=== PATIENT | female | born 1935 | race Caucasian/White ===

== ENCOUNTER 2016-05-10 00:11 | Inpatient (IN) | payer MEDICARE ==
[~2016-05-10] VITALS: Ht 162.6 cm; Wt 67.3 kg
[2016-05-10] VITALS (18 sets, daily range): BP systolic 119–181; BP diastolic 60–97; PULSE 66–91; RESP 9–22; O2SAT 92–99
[~2016-05-10 00:11] MED LIST: OMEP20TA86 PO
--- NOTE | 2016-05-10 00:25 | ED.REPORT ---
HPI-Hip/Pelvis Prob/Inj Date of Service May 10, 2016 ED Provider: Ozzy Patel MD Pt is a 80 y.o. female with a hx of HTN who presents to the ED via EMS c/o left hip injury onset prior to arrival. Pt states that she was attempting to get ready for bed when she experienced a ground level fall, landing on her left hip. She was unable to get up and experiences pain only with movement. She denies head injury and LOC. Pt denies taking blood thinners currently. Nursing Notes Stated Complaint: LEFT HIP PAIN/ FALL Chief Complaint: Extremity Trauma Nursing Notes Reviewed: Yes Allergies: Coded Allergies: codeine (Verified Allergy, Severe, NAUSEA, 05/10/16) iodine (Verified Allergy, Severe, 05/10/16) Scheduled Amlodipine (Amlodipine) 2.5 Mg Tablet 2.5 MG PO DAILY Citalopram (Citalopram) 20 Mg Tablet 20 MG PO DAILY Scheduled PRN Tramadol (Tramadol) 50 Mg Tablet 50 MG PO q6 PRN PRN For Pain General Time Seen by Provider: 00:25 Chief Complaint Hip injury left Hx Obtained From: Patient Arrived By: Ambulance Onset Occurred: Just prior to arrival Context of Onset: Home injury Symptom Duration: Since onset Caused by: Fall on ground Quality: Painful Severity: Current: Pain level 10 out of 10 Past Medical History Past Medical History Arthritis Reports: Hypertension Past Surgical History Right elbow Reports: Cataract surgery, Tonsillectomy Reports: Knee replacement Smoking History Former Smoker, Never Smoker Ambulatory Status Independent Review of Systems Musculoskeletal: Reports: Joint pain (Left hip) Neurologic: Denies: Change LOC, Headache Complete sys rev & neg: except as marked. Physical Exam Initial Vital Signs Vital Signs (First) Date Time Temp Pulse Resp B/P Pulse Ox O2 Delivery O2 Flow Rate FiO2 05/10/16 00:15 36.0 81 20 177/96 99 Room Air Initial VS: Reviewed Upper Extremities: Vascular intact, Neuro intact Skin: Warm, Dry, No cyanosis Neurologic: Alert, Oriented, Nonfocal Psychiatric: Mood/affect normal, Behavior normal, Normal thought content Lower Extremity / Pelvis / MS: Neurologic intact, Vascular intact Lower Ext Brief Normals: Hip R exam normal, Knee R exam normal, Knee L exam normal Left Hip: Positive: Leg externally rotated, Leg shortened, Tenderness present..., Unable to bear weight General/Constitutional: Awake, Alert, No acute distress, Well appearing, Well developed, Well hydrated, Well nourished, Not toxic appearing Head / Eyes: Atraumatic, Normocephalic, PERRL Respiratory / Chest: Atraumatic, Breath sounds NL, Breath sounds = bilat, No respiratory distress, No rales, No rhonchi, No wheezing Cardiovascular: Heart rate NL, Regular rhythm, Heart sounds NL, Peripheral circulation NL Abdomen: Atraumatic, Soft, Non-tender, No distention Interpretation & Diagnostics Lab Results Interpretation Result Diagram: 05/10/16 0117 05/10/16 0117 Test 05/10/16 01:17 White Blood Count 5.6th/mm3 (3.8-10.1) Red Blood Count 4.30mil/mm3 (3.90-5.20) Hemoglobin 13.3g/dL (12.0-15.6) Hematocrit 40.5% (35.0-46.0) Mean Corpuscular Volume 94.2fL (81-100) Mean Corpuscular Hemoglobin 30.9pg (27.0-35.0) Mean Corpuscular Hemoglobin Concent 32.8% (32.0-37.0) Red Cell Distribution Width 12.3% (12.3-15.4) Platelet Count 239bil/L (150-400) Neutrophils (%) (Auto) 62.3% (40-74) Lymphocytes (%) (Auto) 23.7% (14-46) Monocytes (%) (Auto) 8.9% (4-12) Eosinophils (%) (Auto) 3.7% (0-5) Basophils (%) (Auto) 0.9% (0-3) Prothrombin Time 10.6sec (8.1-12.5) Prothromb Time International Ratio 0.99ratio Activated Partial Thromboplast Time 25.9sec (22.8-33.0) Sodium Level 139mEq/L (134-144) Potassium Level 4.4mEq/L (3.5-5.2) Chloride Level 101mEq/L (97-108) Carbon Dioxide Level 23mmol/L (18-29) Blood Urea Nitrogen 29mg/dL (8-27) Creatinine 0.72mg/dL (0.57-1.00) Estimat Glomerular Filtration Rate 112mL/min (>59) Glucose Level 112mg/dL (60-99) Calcium Level 8.7mg/dL (8.5-10.1) Magnesium Level 1.9mg/dL (1.6-2.6) Total Bilirubin 0.2mg/dL (0.0-1.2) Aspartate Amino Transf (AST/SGOT) 25U/L (0-50) Alanine Aminotransferase (ALT/SGPT) 19U/L (0-32) Alkaline Phosphatase 86U/L (25-165) Troponin T 0.010ug/L (0.0-0.011) Total Protein 6.5g/dL (6.4-8.4) Albumin 3.9g/dL (3.4-5.0) Lipase 29U/L (13-60) Alcohols < 10mg/dL (0-10) ECG Interpretation Time: 01:14 Interpreted by: ED physician Normal ECG Interpretation: Normal ECG w/ rate of... (77), Normal rate, Normal sinus rhythm, No acute ischemic changes, Normal QRS, Normal axis, Normal intervals, No change from prior ECGs (05/27/15) X-Ray Chest Interpretation Chest Xray Interpretation: IMPRESSION: No acute cardiopulmonary disease. Interpretation / Wet Read by: Wet read ED physician X-Ray Interpretation Xray Interpretation: IMPRESSION: Displaced ntertrochanteric left hip fracture. X-Ray Ordered: Pelvis Interpretation / Wet Read by: Wet read ED physician Re-Eval/Medical Decision Med Decision/Clinical Course Relatively healthy 80-year-old has suffered an intertrochanteric fracture of the left hip. She will require operative management. Admitted to the medicine service for preop clearance and management. Message left with orthopedics per their protocol. Nothing by mouth status overnight. MEDICAL PHYSIOLOGIST analgesia provided. Source of Hx: Old records Re-Evaluation/Progress : Time of Eval: 01:36 Re-Evaluation/Progress Note: Pt rechecked. Discussed imaging results and plan for admit, pt understands and agrees with plan. Consultation : Referral / Consult Name: Fatou Saavedra MD Call Returned at: 01:28 Medical Physiologist: Will see patient, Agrees with eval, Agrees with plan, Accepts admit Note: Discussed pt condition. Accepts admit. Counseled Regarding: Diagnosis Discharge & Departure Shift Change Sign-Out Response to Therapy: Improved Impression: Primary Impression: Intertrochanteric fracture of left hip Encounter type: initial encounter Fracture type: closed Qualified Code: S72.142A - Displaced intertrochanteric fracture of left femur, initial encounter for closed fracture Disposition: ADMITTED TO HOSPITAL Discharge Condition All VS Reviewed: Yes Condition: Improved Referrals: Ligia River MD (PCP) Loy Attestation Portions of this note were transcribed by Arya Goode. I, Dr. Patel personally performed the history, physical exam and medical decision-making; I reviewed and confirmed the accuracy of the information in the transcribed note. Signed by: Loy Poe, 05/10/16 and 0154. copies to: Ligia River MD, Christopher W MD May 10, 2016 00:25 ARYA GOODE May 10, 2016 00:32
[2016-05-10] MEDS ORDERED: 0.9% Sodium Chloride 1,000 ML IV ONE (00:43)
[2016-05-10] MEDS ORDERED: Ondansetron 2 mg/mL 2 mL Inj IVPUSH ONE (00:45)
[2016-05-10] MEDS: HYDROmorphone 0.5 mg/0.5 mL iSecure Syringe IVPUSH PRN ×3 (01:05→03:01)
[2016-05-10 01:31] LABS: BASOPHILS % (AUTO) 0.9 % (0-3); EOSINOPHILS % (AUTO) 3.7 % (0-5); MONOCYTES % (AUTO) 8.9 % (4-12); Mean Corpuscular Hemoglobin 30.9 pg (27.0-35.0); Mean Corpuscular Volume 94.2 fL (81-100); NEUTROPHILS % (AUTO) 62.3 % (40-74); Platelet Count 239 bil/L (150-400)
[2016-05-10 01:52] LABS: INR 0.99 ratio
[2016-05-10] MEDS ORDERED: Ondansetron 2 mg/mL 2 mL Inj IVPUSH PRN ×4 (02:10→18:55)
[2016-05-10] MEDS ORDERED: HYDROmorphone 0.5 mg/0.5 mL iSecure Syringe IVPUSH PRN ×2 (02:10→18:55)
[2016-05-10] MEDS ORDERED: HYDROmorphone PCA 0.2 mg/mL 30 mL Inj IV PRN (02:10)
[2016-05-10 02:15] LABS: Magnesium 1.9 mg/dL (1.6-2.6)
[2016-05-10 02:16] LABS: Lipase 29 U/L (13-60)
[2016-05-10] MEDS ORDERED: TRAM50TA2 PO (02:18)
[2016-05-10] MEDS ORDERED: AMLO2.5T PO (02:18)
[2016-05-10] MEDS ORDERED: CITA20TA11 PO (02:18)
--- NOTE | 2016-05-10 03:33 | PCM.HPMED ---
Subjective Date of Service May 10, 2016 Primary Provider: Admitting Physician: Fatou Saavedra MD Primary Care Physician: Froy River MD Attending Physician: Fatou Saavedra MD Admit Status: From the Emergency Department Chief Complaint: Left hip pain, ground level fall History of Present Illness: 80-year-old female with past medical history of hypertension, scoliosis, arthritis, anxiety, and depression presents to the emergency department after a ground-level fall with left hip pain. Patient was getting ready for bed, she was standing while trying to get her leg out of her pants and she lost her balance, she reached through the air and could not catch herself. She ended up falling onto her left hip. She did not lose consciousness, she reports no other areas of impact or pain. After the fall she was unable to get up or move. She is having discomfort in that she feels as if she cannot find a comfortable position for her legs. Each time she tries to move or adjust she experiences a pain that "grabs me". Patient reports left-sided leg pain and discomfort, and constipation. She denies chest pain, shortness of breath, and headache. In the emergency department patient was stable with hypertension of 177/96. Pelvis x-ray reveals left sided displaced intertrochanteric hip fracture. Chest x-ray shows no acute cardiopulmonary process. Troponin negative, serum alcohol negative. Review of Systems: Interim review of systems Allergies Coded Allergies: codeine (Verified Allergy, Severe, NAUSEA, 05/10/16) iodine (Verified Allergy, Severe, 05/10/16) Home Medications 1. Amlodipine 2.5 mg by mouth daily 2. Citalopram 20 mg by mouth daily 3. Tramadol 50 mg by mouth every 6 hours when necessary for pain 4. Aleve twice a day 5. Multivitamin daily PMH 1. Scoliosis 2. Arthritis 3. Left foot collapsed arch 4. Hypertension Surgical History 1. Right total knee arthroplasty 2. Left partial knee arthroplasty 3. Cataract removal 4. Right elbow surgery for cellulitis including back application and debridement 5. Rhinoplasty Family History Extensive family history of arthritis Both mother and father had hypertension Brother from an [place] in his 60s Knees from long QT syndrome Social History Hx Alcohol Use: Yes Hx Substance Use: No Hx Tobacco Use: No Smoking Status: Former Smoker (smoked socially in her 20s), Never Smoker Living Arrangement: with Family (adult daughter lives with the patient) Additional Information Patient ambulates independently at baseline Exam Vital Signs Vital Sign - Last Date Time Temp Pulse Resp B/P Pulse Ox O2 Delivery O2 Flow Rate FiO2 05/10/16 00:15 36.0 81 20 177/96 99 Room Air Intake and Output 05/09/16 05/09/16 05/10/16 Cumulative From/Thru 15:00 23:00 07:00 05/10/16 00:15 - 05/10/16 01:06 Intake Total 1000 ml 1000 ml Balance 1000 ml 1000 ml Intake IV Total 1000 ml 1000 ml Exam General: Mild acute distress with occasional grimacing from pain, well-developed , well-nourished, appropriately interactive HEENT: Normocephalic, atraumatic. External ears without defect. Pupils equal, round, and reactive to light and accommodation. Anicteric sclerae, moist conjunctivae, and no lid lag. Oropharynx free of erythema and cobble stoning with moist mucosa. Neck: Supple with full range of motion. No jugular venous distension. No lymphadenopathy or thyromegaly. Cardiovascular: Regular rate and rhythm with no murmurs, rubs, or gallops appreciated Pulmonary: Clear to auscultation bilaterally with no crackles, wheezes, or rhonchi. Normal respiratory effort with no use of accessory muscles. Abdomen: Bowel tones present. Soft, nontender, nondistended. No hepatosplenomegaly or masses appreciated. Extremities: Left leg painful hip and thigh, carefully positioned externally rotated at the hip and flexed at the knee. Posterior tibial pulses symmetric bilaterally. No clubbing, cyanosis, edema, or lymphadenopathy appreciated. Skin: Erythematous hyperkeratotic lesion on dorsal wrists bilaterally. Normal temperature, turgor, and texture; no rash, or ulcers appreciated. Neurological: Cranial nerves grossly intact. Normal muscle tone, and bulk. No gait impairment prior to injury, patient unable to move left leg and hip. Psychiatric: Normal mood and affect. Alert and oriented to person, place, and time. Lab and Diagnostics Result Diagram: 05/10/16 0117 X-Rays, CTs and MRIs Radiology reading the chest x-ray and left hip x-ray pending at the time of dictation, no acute cardiopulmonary process identified on chest x-ray, displaced intertrochanteric fracture of left hip. 12-lead ECG EKG showed normal sinus rhythm at a rate of 77 Assessment & Plan 80-year-old female with past medical history of hypertension, scoliosis, arthritis, anxiety, and depression presents to the emergency department after a ground-level fall with left hip pain. Patient is found to have displaced intertrochanteric fracture of the left femur. 1. Displaced intertrochanteric fracture of the left hip, present on admission, acute - Patient had a ground-level fall with no loss of consciousness - Emergency room physician left message on orthopedic surgery voicemail per new protocol, recommended day hospitalist contact orthopedic surgeon compensation adjuster. - IV Dilaudid COLLISION CENTER MANAGER for pain control - When necessary Zofran for nausea - Type and cross ordered in case patient needs blood transfusion. - Lactated Ringer's 100 mL per hour - Patient made nothing by mouth 2. Hypertension, present on admission, acute on chronic - Continue home dose amlodipine - Continue to monitor 3. Depression with anxiety, present on admission, chronic - Patient on Celexa, continue this medication Acetaminophen for mild pain when necessary. Bowel regimen Senna and MiraLAX PRN. Zofran when necessary for nausea and vomiting. DVT prophylaxis held until post surgery High-risk medications include IV Dilaudid COLLISION CENTER MANAGER Patient was admitted under inpatient status with expected length of stay greater than 2 midnights due to severity of presenting symptoms, risk of adverse event, and complexity of treatment plan. Pain Evaluation: Adequate Pain Control GI Prophylaxis: Not indicated VTE Mechanical Devices: Intermittant Pneumatic CD Resuscitation Status: CPR: Attempt Resuscitation Attending Statement Pt seen and examined by myself and agree with above plan. copies to: Froy River MD, Erika R DO May 10, 2016 02:05 Fatou Saavedra MD May 10, 2016 06:33
[2016-05-10] MEDS: Lactated Ringer's 1,000 ML IV SCH ×3 (03:53→17:36)
--- NOTE | 2016-05-10 06:13 | NUR ---
Admission Pt arrived on unit at 0400. Had a GLF at home and has a left femur fracture with anticipated surgery. Pt oriented to room, call light, bed controls. Pt daughter at bedside. Pt has haddad cath and will require 2EA with care. BUDGET RECORD CLERK dilaudid running at standard settings with LR at 100ml/hr
--- NOTE | 2016-05-10 09:19 | DRSVH ---
PROCEDURE: X-RAY PELVIS W/LAT HIP (LT) ([id number]) INDICATIONS: pre op TECHNIQUE: AP pelvis with lateral view(s) of the left hip(s). COMPARISON: None. FINDINGS: Bones: Mildly displaced left intratrochanteric hip fracture is present. Obturator rings are intact. Mild joint degeneration. Degenerative change within the lower lumbar spine. Soft tissues: The visualized bowel gas pattern is normal. No suspicious soft tissue calcifications. IMPRESSION: Left intratrochanteric hip fracture. Dictated by: Miller Bain [facility] Interpreted: Vesta Hope MD on 05/10/2016 at 9:18 Transcribed by: DIAMOND on 05/10/2016 at 9:19 Approved by: Vesta Hope MD, PhD on 05/10/2016 at 17:00
--- NOTE | 2016-05-10 09:20 | DRSVH ---
PROCEDURE: X-RAY CHEST ONE VIEW, PORTABLE ([id number]) INDICATIONS: pre op TECHNIQUE: One view of the chest was acquired. COMPARISON: None. FINDINGS: Surgical changes and devices: None. Lungs and pleura: No pleural effusions or pneumothorax. Lungs are clear. Mediastinum: Mediastinal contours appear normal. Heart size is normal. Bones and chest wall: No suspicious bony lesions. Overlying soft tissues appear unremarkable. IMPRESSION: No acute cardiopulmonary disease. Dictated by: Miller Bain [facility] Interpreted: Vesta Hope MD on 05/10/2016 at 9:19 Transcribed by: DIAMOND on 05/10/2016 at 9:19 Approved by: Vesta Hope MD, PhD on 05/10/2016 at 17:00
[2016-05-10 09:52] LABS: APPEARANCE,URINE HAZY (CLEAR,HAZY); COLOR,URINE STRAW (YELLOW); OCCULT BLOOD,URINE SMALL (NEGATIVE); PH,URINE 6.5 (5.0-8.0); UROBILINOGEN,URINE NORMAL (NORMAL)
[2016-05-10] MEDS ORDERED: Lidocaine PF 1% 30 mL Inj ONE (11:00)
[2016-05-10] MEDS ORDERED: fentaNYL-PF 50 mCg/mL 2 mL Inj ONE ×2 (11:00→18:53)
[2016-05-10] MEDS ORDERED: Phenylephrine/NS 100 mCg/mL 10 mL Syringe IVPUSH ONE (11:00)
[2016-05-10] MEDS ORDERED: HYDROmorphone 2 mg/mL Inj ONE (11:00)
[2016-05-10] MEDS ORDERED: Propofol 10 mg/mL 20 mL Inj ONE (11:00)
[2016-05-10] MEDS ORDERED: Ondansetron 2 mg/mL 2 mL Inj ONE (11:00)
--- NOTE | 2016-05-10 13:36 | PCM.PNMED ---
Subjective Date of Service May 10, 2016 Subjective Patient was seen and examined today agree with current plan patient will be scheduled for repair of left intertrochanteric fracture later today with orthopedic surgery Exam Vital Signs Vital Sign - Last Date Time Temp Pulse Resp B/P Pulse Ox O2 Delivery O2 Flow Rate FiO2 05/10/16 09:32 36.6 66 14 142/78 96 Room Air Intake and Output 05/09/16 05/09/16 05/10/16 Cumulative From/Thru 15:00 23:00 07:00 05/10/16 00:15 - 05/10/16 06:02 Intake Total 1000 ml 1000 ml Output Total 750 ml 750 ml Balance 250 ml 250 ml Intake Oral 0 ml 0 ml IV Total 1000 ml 1000 ml Output Urine Total 750 ml 750 ml Exam Physical Exam: GEN: Patient was awake, alert, responding appropriately to questions HEENT: PERRLA, EOMI, Neck soft supple, trachea midline, nomocephalic/atraumatic CV: +S1/S2, RRR, no murmur auscultated Respiratory: CTAB, no wheezes, rales, rhonchi GI: +bowel sounds x4, soft, compressible, non TTP EXT: no c/c/e Neuro: CN II-XII grossly intact Psych: mood and affect were appropriate IVs and Medications Medications Reviewed: Medications were reviewed in detail Lab and Diagnostics Result Diagram: 05/10/1611605/10/16116 X-Rays, CTs and MRIs Radiology reading the chest x-ray and left hip x-ray pending at the time of dictation, no acute cardiopulmonary process identified on chest x-ray, displaced intertrochanteric fracture of left hip. 12-lead ECG EKG showed normal sinus rhythm at a rate of 77 Assessment & Plan 80-year-old female with past medical history of hypertension, scoliosis, arthritis, anxiety, and depression presents to the emergency department after a ground-level fall with left hip pain. Patient is found to have displaced intertrochanteric fracture of the left femur. 1. Displaced intertrochanteric fracture of the left hip, present on admission, acute - Patient had a ground-level fall with no loss of consciousness - Emergency room physician left message on orthopedic surgery voicemail per new protocol, recommended day hospitalist contact orthopedic surgeon business operations director. - IV Dilaudid PRODUCTION OPERATIONS MANAGER for pain control - When necessary Zofran for nausea - Type and cross ordered in case patient needs blood transfusion. - Lactated Ringer's 100 mL per hour - Patient made nothing by mouth 2. Hypertension, present on admission, acute on chronic - Continue home dose amlodipine - Continue to monitor 3. Depression with anxiety, present on admission, chronic - Patient on Celexa, continue this medication Acetaminophen for mild pain when necessary. Bowel regimen Senna and MiraLAX PRN. Zofran when necessary for nausea and vomiting. DVT prophylaxis held until post surgery High-risk medications include IV Dilaudid PRODUCTION OPERATIONS MANAGER Patient was admitted under inpatient status with expected length of stay greater than 2 midnights due to severity of presenting symptoms, risk of adverse event, and complexity of treatment plan. GI Prophylaxis: Not indicated VTE Mechanical Devices: Intermittant Pneumatic CD Resuscitation Status: CPR: Attempt Resuscitation Estela Sauceda DO May 10, 2016 13:36
--- NOTE | 2016-05-10 14:46 | NUR ---
O2/Respirations Pt alert and oriented. Daughter in room. She is on a standard dose GREEN JOBS TRAINER Dilaudid. RR 11-12, shallow breathing. Pt dozes off at times, yet easily aroused. Cont pulse ox in place and 2L O2 applied for precautions. Deshaun Scale was 11 so I initiated the skin care protocol. Pt bedrest, scheduled for surgery this evening. She has been NPO since midnight last night. Addendum: 05/10/16 at 1710 by MT SMITH RN End tidal C02 monitor ordered from RT.
--- NOTE | 2016-05-10 16:22 | NUR ---
Social Work: Initial Assessment Data: Pt is a 80 y/o female admitted for L inertrochanter fracture hip. Pt's PCP is Dr River, pt's insurance is Medicare with [employer] supp. EMR reviewed. Readmit score not listed. DRAFTING LAYOUT MAN met with pt at bedside, role explained. Pt states that she lives in [place] with her daughter where she uses no DME but owns a walker. Pt states that he drives, has hx with [facility], has no hx with SNF, no LTC or VA benefits, and is not a caregiver. Pt's DPOA paperwork in in EMR. Pt is scheduled to have surgery tonight. SNF choice list given. Pt states she will look at it later, DRAFTING LAYOUT MAN will follow post surgery regarding SNF choice. Assessment: Pt who is independent at baseline. Plan: Pt will d/c likely to SNF, DRAFTING LAYOUT MAN will follow regarding PT recommendations and pt's SNF preference. DRAFTING LAYOUT MAN will continue to follow. VIANNEY Membreno Addendum: 05/10/16 at 1626 by KITTY CORDERO Amended: Links added.
--- NOTE | 2016-05-10 17:10 | NUR ---
Pt off floor to surgery
[2016-05-10] MEDS ORDERED: Lactated Ringer's 1,000 ML IV SCH (17:51)
[2016-05-10] MEDS ORDERED: Lactated Ringer's 500 ML IV PRN (17:51)
--- NOTE | 2016-05-10 17:51 | PCM.HPANE ---
Patient Data Date of Service: May 10, 2016 Surgeon Admitting Provider:Fatou Saavedra MD Attending Provider:Fatou Saavedra MD Primary Care Physician:[place] MD Other Provider: Reason for Visit L Inertrochanter Fracture Hip Ht/WT & BMI Height (Feet): 5 Height (Inches): 4.00 Weight (Kilograms): 67.300 Body Mass Index 25.33 Allergies Coded Allergies: codeine (Verified Allergy, Severe, NAUSEA, 05/10/16) iodine (Verified Allergy, Severe, 05/10/16) Past Anesthesia History Anesthesia History: Denies:: Anesthesia Reactions, Fam Anesthesia Reaction Diabetes History Hx Diabetes?: No MRSA MRSA: No Medications Hypertension Medication: Yes Home Meds Incl Beta Azul: No Reported Medications Citalopram 20 Mg [id number] Mg PO DAILY Ref 0 05/10/16 Tramadol 50 Mg [id number] Mg PO q6 PRN For Pain Ref 0 05/10/16 Amlodipine 2.5 Mg Tablet2.5 Mg PO DAILY Ref 0 05/10/16 Discontinued Reported Medications Omeprazole 20 Mg Tablet.dr20 Mg PO DAILY 05/31/15 History History of ENT Problems?: Yes HEENT History: Positive for:: Cataracts Sinus Problem (chronic post nasal drip ) Denies:: Dysphagia Other HEENT Pertinent History: allergies Hx of Heart Problems?: Yes Cardiovascular History: Positive for:: Edema (current right elbow/arm, intermittent B ankles ) Heart Murmur (just discovered in ED) Hypertension Denies:: Cardiac Surgery Chest Pain Congestive Heart Failure Irregular Heartbeat Pacemaker Thrombophlebitis Hx of Respiratory Problem?: No Respiratory History: Denies:: Asthma COPD Chest Surgery Dyspnea Emphysema Hemoptysis Pneumonia Tuberculosis Hx Neurologic Problems?: No Neurological History: Positive for:: Dizziness (intermittent ) Denies:: Alzheimer's Disease CVA Dementia Headaches Parkinson's Disease Seizures Hx of GI Problems?: Yes Gastrointestinal History: Positive for:: Heartburn Denies:: Diverticulitis Gastroesphageal Reflux Gastrointestinal Bleeding Hepatitis Hiatal Hernia Rectal Bleeding Hx of Problems?: No Genitourinary History: Positive for:: Urinary Tract Infection Denies:: HX of Hemodialysis Kidney Stones HX of Peritoneal Dialysis: No Female Hx: Denies:: Endometriosis Pelvic Inflammatory Problems with Breasts? Skin History: Positive for:: History Skin Disorders? (open wound right elbow) Denies:: Pressure Ulcers Hx Musculoskeletal Problems?: Yes Musculoskeletal History: Positive for:: Back Injury Degenerative Joint Joint Replacement (BL knees) Denies:: Musculoskeletal Trauma Systemic Lupus Hx of Psycho/Social Problems?: No Psycho Social History: Denies:: Anxiety Bipolar Disorder Hx Depression Suicide Attempt Hx Surgeries?: Yes (BL knees, cellulitis right elbow) Hx Any Other Health Problems?: Yes Other History: Positive for:: Hospitalization Denies:: Cancer Thyroid Disease History Blood Transfusions: Positive for:: Accept Blood Products? Blood Transfusions Denies:: Blood Transfuse Reaction Hx Diabetes: No Hx Alcohol Use: Yes (wine)Alcoholic Drinks Per Day: dailyHx Substance Use: No Smoking Status: Former Smoker (smoked socially in her 20s) Never Smoker Have You Smoked inLast 12 mo: No Stop/Bang Treated for Sleep Apnea?: No Do You Have a CPAP Machine?: No S-Snoring: Do You Snore Loudly: No T-Tired: feel tired, fatigued: No O-Obsered: Observed not breath: No P-Blood Pressure: treated: Yes B- Body Mass Index > 35 kg/m2: No A- Age over 50: Yes N- Neck Large Circumference: No LIBIA Risk Assessment: Low Risk, <3 Yes Risk Assessment Category Category 1A: Patient has history of documented sleep apnea, and HAS NOT received any narcotic, sedative or anesthesia administration during this stay. Category 1B: Patient has history of documented sleep apnea, and HAS received any narcotic , sedative or anesthesia administration during this stay Category 2: Patient has SUSPECTED Obstructive Sleep Apnea, and HAS received any narcotic , sedative or anesthesia administration during this stay. Category 3: Patient has SUSPECTED Obstructive Sleep Apnea and HAS NOT received narcotic, sedative or anesthesia administration during this stay. Category 4: Outpatient in Procedural Areas with known sleep apnea or who screen positive for High Risk via the STOP/BANG questionnaire. Exam Exam Vital Signs Vital Signs Date Time Temp Pulse Resp B/P Pulse Ox O2 Delivery O2 Flow Rate FiO2 05/10/16 16:24 36.6 84 16 163/74 92 Room Air 05/10/16 16:04 Supplement Oxygen 05/10/16 13:30 11 05/10/16 09:32 36.6 66 14 142/78 96 Room Air General Appearance: Alert, Oriented X3, Cooperative, No Acute Distress HEENT/AIRWAY: MP 3 Lungs: Clear to Auscultation, Normal Air Movement Heart: Exam Unremarkable, Regular Rate/Rhythm, No Murmurs/Rubs/Gallops Meds/Labs/Diagnostics Admission Meds Current Medications Sodium Chloride (Normal Saline) 1,000 ml @ 0 mls/hr Q0M ONCE IV Last administered on 05/10/16 01:05; Start 05/10/16 at 00:43; Stop 05/10/16 at 00:47 ; Status DC Ondansetron HCl 8 mg 8 mg ONCE ONCE IVPUSH Last administered on 05/10/16 01: 05; Start 05/10/16 at 00:45; Stop 05/10/16 at 00:47; Status DC Lactated Ringer's (Lr) 1,000 ml @ 100 mls/hr Q10H IV Last administered on 05/10 13:34; Start 05/10/16 at 02:10 Labs Test 05/10/16 01:17 05/10/16 08:42 White Blood Count 5.6th/mm3 (3.8-10.1) Red Blood Count 4.30mil/mm3 (3.90-5.20) Hemoglobin 13.3g/dL (12.0-15.6) Hematocrit 40.5% (35.0-46.0) Mean Corpuscular Volume 94.2fL (81-100) Mean Corpuscular Hemoglobin 30.9pg (27.0-35.0) Mean Corpuscular Hemoglobin Concent 32.8% (32.0-37.0) Red Cell Distribution Width 12.3% (12.3-15.4) Platelet Count 239bil/L (150-400) Neutrophils (%) (Auto) 62.3% (40-74) Lymphocytes (%) (Auto) 23.7% (14-46) Monocytes (%) (Auto) 8.9% (4-12) Eosinophils (%) (Auto) 3.7% (0-5) Basophils (%) (Auto) 0.9% (0-3) Prothrombin Time 10.6sec (8.1-12.5) Prothromb Time International Ratio 0.99ratio Activated Partial Thromboplast Time 25.9sec (22.8-33.0) Sodium Level 139mEq/L (134-144) Potassium Level 4.4mEq/L (3.5-5.2) Chloride Level 101mEq/L (97-108) Carbon Dioxide Level 23mmol/L (18-29) Blood Urea Nitrogen 29mg/dL (8-27) Creatinine 0.72mg/dL (0.57-1.00) Estimat Glomerular Filtration Rate 112mL/min (>59) Glucose Level 112mg/dL (60-99) Calcium Level 8.7mg/dL (8.5-10.1) Magnesium Level 1.9mg/dL (1.6-2.6) Total Bilirubin 0.2mg/dL (0.0-1.2) Aspartate Amino Transf (AST/SGOT) 25U/L (0-50) Alanine Aminotransferase (ALT/SGPT) 19U/L (0-32) Alkaline Phosphatase 86U/L (25-165) Troponin T 0.010ug/L (0.0-0.011) Total Protein 6.5g/dL (6.4-8.4) Albumin 3.9g/dL (3.4-5.0) Lipase 29U/L (13-60) Alcohols < 10mg/dL (0-10) Urine Color Straw (YELLOW) Urine Appearance Hazy (CLEAR,HAZY) Urine pH 6.5 (5.0-8.0) Urine Specific [place] 1.020 (1.003-1.035) Urine Protein Negativemg/dL (NEG,TRACE) Urine Glucose (UA) Negativemg/dL (NEGATIVE) Urine Ketones Negativemg/dL (NEGATIVE) Urine Occult Blood Small (NEGATIVE) Urine Nitrite Negative (NEGATIVE) Urine Bilirubin Negative (NEGATIVE) Urine Urobilinogen Normalmg/dL (NORMAL) Urine Leukocyte Esterase Negative (NEGATIVE) Urine RBC 0-2/hpf (0-2) Urine WBC 0-5/hpf (0-5) Urine Epithelial Cells Occasional/hpf (NONE-MOD) Urine Crystals None seen (NONE SEEN) Urine Bacteria Few/hpf (NONE-FEW) Urine Hyaline Casts None/lpf (NONE) Urine Granular Casts None seen (NONE SEEN) Urine Waxy Casts None seen (NONE SEEN) Urine Red Blood Cell Casts None seen (NONE SEEN) Urine White Blood Cell Casts None seen (NONE SEEN) Urine Mucus None seen (None Seen) Urine Trichomonas None seen (NONE SEEN) Urine Yeast None (NONE SEEN) Urinalysis Comment None Urine Culture Reflexed Not indicated Plan Impression Patient chart reviewed, patient interviewed and anesthestic plan with risks, benefits, and alternatives discussed, and informed consent obtained. NPO Status: 4/5 at 2100 ASA Physical Status: ASA2 Mod Systemic Disease Anesthetic Plan: GA Bene/Risks/Altern/Consents: Yes HP Complete Prior to Induction: Yes Other DIscussed GA vs SAB. Patient is a former [employer]. She prefers GA. Jonnie Hoyt MD May 10, 2016 17:09
[2016-05-10] MEDS ORDERED: Atropine 0.4 mg/mL Inj IVPUSH PRN (17:55)
[2016-05-10] MEDS ORDERED: MetoCLOpramide 5 mg/mL 2 mL Inj IVPUSH PRN (17:55)
[2016-05-10] MEDS ORDERED: Phenylephrine 10,000 mCg/mL Inj IVPUSH PRN (17:55)
[2016-05-10] MEDS ORDERED: Labetalol 5 mg/mL 4 mL Inj IV PRN (17:55)
[2016-05-10] MEDS ORDERED: Dexamethasone 4 mg/mL Inj IVPUSH PRN (17:55)
[2016-05-10] MEDS ORDERED: EPHEDrine Sulfate 50 mg/mL Inj IVPUSH PRN (17:55)
[2016-05-10] MEDS ORDERED: fentaNYL-PF 50 mCg/mL 2 mL Inj IVPUSH PRN (17:55)
[2016-05-10] MEDS ORDERED: hydrALAZINE 20 mg/mL Inj IVPUSH PRN (17:55)
[2016-05-10] MEDS ORDERED: Bupivacaine Liposome 1.3% 20 mL Inj ONE (18:19)
[2016-05-10] MEDS ORDERED: Bupivacaine 0.5%/EPI 50 mL Inj INFILTRATE ONE (18:22)
[2016-05-10] MEDS ORDERED: Bupivacaine Liposome 1.3% 20 mL Inj INFILTRATE ONE (18:22)
--- NOTE | 2016-05-10 18:50 | PCM.ANEP1 ---
Post Anesthesia Phase 1 PACU Phase 1 Assessment Date of Service: May 10, 2016 Vital Signs 36 135/80 87 10 98% NC Anesthetic Administered: GA Level of Alertness: Sleepy, easy to arouse BOWSER's with Equal Strength: Yes Pain: Yes (with movement) Pain Scale Score: 4 Oxygen Delivery: Nasal Cannula Lungs: Clear to Auscultation, Normal Air Movement Jonnie Hoyt MD May 10, 2016 18:50
--- NOTE | 2016-05-10 18:53 | PCM.ANEP2 ---
Post Anesthesia Evaluation ASA/CMS Post Anesthesia Date of Service: May 10, 2016 VS in Patient's Normal Range?: Yes Resp Stable; Airway Patent?: Yes CV Function & Hydration Stable: Yes Mental Status Recovered?: Yes Pain control Satisfactory?: Yes N/V Control Satisfactory?: Yes Jonnie Hoyt MD May 10, 2016 18:52
[2016-05-10] MEDS ORDERED: diphenhydrAMINE 25 mg Capsule PO PRN (18:55)
[2016-05-10] MEDS ORDERED: Polyethylene Glycol (PEG) 17 Gm Powder PO PRN (18:55)
[2016-05-10] MEDS ORDERED: Magnesium Hydroxide 10 mL Oral Concentration PO PRN (18:55)
[2016-05-10] MEDS: HYDROmorphone 1 mg/mL Inj IVPUSH PRN ×3 (19:11→19:59)
--- NOTE | 2016-05-10 20:30 | NUR ---
Post op Returned from PACU alert and oriented, c/o slight confusion about room, easily reoriented. Dressing C/D/I, sensation intact, able to move foot feebly. No significant complaint of pain, will trial oral pain meds instead of reinstating INSIDE SALES MANAGER. O2 and pulse oximetry, IV fluids infusing. Hourly rounding ongoing.
[2016-05-10] MEDS: 0.9% Sodium Chloride 1,000 ML IV SCH (20:46)
--- NOTE | 2016-05-10 22:14 | OP ---
[address] [address] OPERATIVE REPORT PATIENT: DUGLAS MARVIN : 1935 MR#: [id number] ADMIT: 05/10/2016 JOB ID: [id number] DATE OF SURGERY: 05/10/2016 PREOPERATIVE DIAGNOSIS(ES): Left intertrochanteric hip fracture. POSTOPERATIVE DIAGNOSIS(ES): Left intertrochanteric hip fracture. PROCEDURE: Left hip open reduction and internal fixation with dynamic hip screw fixation. SURGEON: Alejandro Pascual DO. ANESTHESIA: General. INDICATIONS: The patient is a 80-year-old female who was at home with her daughter and fell directly onto her left hip. She was unable to walk after the fall. She was brought to the emergency department and found to have an intertrochanteric hip fracture. We discussed treatment options for this including dynamic hip screw versus intramedullary nail and she wished to proceed with a dynamic hip screw. We discussed risks, benefits, and possible complications of surgery including, but not limited to, injury to nerves and vessels, infection, bleeding, incomplete relief of symptoms, stiffness, need for additional procedures. The patient and daughter had good understanding. All questions were answered and they wished to proceed. PROCEDURE IN DETAIL: The patient was brought to the operating room. She was given a preoperative antibiotic and surgical time out was performed. She was given an LMA general anesthetic, placed onto the fracture table. The fracture was reduced with a combination of traction and internal rotation. The left hip was sterilely prepped and draped. An incision was made centered over the lesser trochanter. Dissection was carefully carried through the subcutaneous tissue. Electrocautery was used for hemostasis. A split was then made in the iliotibial band in line with the skin incision and then a split was then made in the vastus lateralis at the junction of the anterior 1/3 and posterior 2/3, and the muscle was elevated off the anterior femur. A 135 degree guide was then placed on the lateral femur for the DHS guide. A drill pin was then directed into the center-center position of the femoral head. This was then measured and overreamed with a 490 mm lag screw. A 90 mm lag screw was then inserted, had excellent fixation and a three hole 135 degree DHS plate was then impacted into position over the lag screw. This was secured to the shaft with three bicortical screws which had excellent fixation. A compression screw was used to then add some compression across the fracture site. Confirmation was made with biplane fluoroscopy of satisfactory alignment and position of the hardware and fracture reduction. The wound was then irrigated and closed with 0 Vicryl to close and repair the vastus lateralis fascia and the iliotibial band. The subcu was closed with 2-0 and the skin was closed with mannie. Mixture of EXPAREL and Marcaine with epi was added as an adjunct local anesthetic. Sterile dressings were applied. Patient tolerated the procedure well. Blood loss was 100 cc. Postoperative protocol: Have the patient remain 50% partial weightbearing on the left lower extremity. Use a walker for ambulation and plan to use Lovenox for DVT prophylaxis and [place] 5/325 for pain.
[2016-05-10] MEDS: Senna-Docusate 8.6-50 mg Tablet PO SCH (22:19)
[2016-05-10] MEDS: hydrOXYzine Pamoate 25 mg Capsule PO PRN (22:19)
[2016-05-10] MEDS: HYDROcodone-APAP 5-325 mg Tablet PO PRN (22:19)
[2016-05-11] VITALS (7 sets, daily range): BP systolic 78–135; BP diastolic 35–83; PULSE 77–88; RESP 16–19; O2SAT 93–99
[2016-05-11] MEDS: Sodium Chloride LOK Flush 10 mL Syringe IV SCH ×3 (00:30→17:02)
[2016-05-11] MEDS: hydrOXYzine Pamoate 25 mg Capsule PO PRN ×5 (02:07→21:33)
[2016-05-11] MEDS: HYDROcodone-APAP 5-325 mg Tablet PO PRN ×4 (02:07→14:10)
[2016-05-11] MEDS: 0.9% Sodium Chloride 1,000 ML IV SCH (04:52)
--- NOTE | 2016-05-11 05:04 | NUR ---
Pain Pain well controlled with oral medications, Vistaril for adjunct. Mild nausea resolved. Assisted to turn for skin care. Dressing with very small amount of spotting. Hourly rounding ongoing.
[2016-05-11 07:34] LABS: BASOPHILS % (AUTO) 0.5 % (0-3); EOSINOPHILS % (AUTO) 1.8 % (0-5); MONOCYTES % (AUTO) 8.5 % (4-12); Mean Corpuscular Volume 96.2 fL (81-100); NEUTROPHILS % (AUTO) 74.6 % (40-74); Platelet Count 188 bil/L (150-400)
[2016-05-11] MEDS: Senna-Docusate 8.6-50 mg Tablet PO SCH ×2 (09:19→20:26)
[2016-05-11] MEDS: Acetaminophen IV 1,000 MG in IV Premix 1 EACH IV PRN ×2 (10:27→17:00)
--- NOTE | 2016-05-11 11:49 | PCM.PNMED ---
Subjective Date of Service May 11, 2016 Subjective Patient was seen and examined at bedside today. Patient denies any chest pain, shortness of breath, nausea, vomiting, diarrhea. Patient states that she does have more pain than anticipated and the left hip which is to be expected secondary to her surgery. Exam Vital Signs Vital Sign - Last Date Time Temp Pulse Resp B/P Pulse Ox O2 Delivery O2 Flow Rate FiO2 05/11/16 04:58 36.7 83 17 122/78 97 Nasal Cannula 1.00 Intake and Output 05/10/16 05/10/16 05/11/16 Cumulative From/Thru 15:00 23:00 07:00 05/10/16 00:15 - 05/11/16 05:53 Intake Total 1770 ml 1081 ml 3851 ml Output Total 400 ml 550 ml 1700 ml Balance 1370 ml 531 ml 2151 ml Intake Oral 200 ml 200 ml IV Total 1770 ml 881 ml 3651 ml Output Urine Total 300 ml 550 ml 1600 ml Estimated Blood Loss 100 ml 100 ml # Bowel Movements 0 0 Exam Physical Exam: GEN: Patient was awake, alert, responding appropriately to questions HEENT: PERRLA, EOMI, Neck soft supple, trachea midline, nomocephalic/atraumatic CV: +S1/S2, RRR, no murmur auscultated Respiratory: CTAB, no wheezes, rales, rhonchi GI: +bowel sounds x4, soft, compressible, non TTP EXT: no c/c/e, +2 out of 4 dorsalis pedis pulse in the left lower extremity Skin: Surgical site is bandaged dressing is dry and intact Muscular skeletal: Positive S1, positive dorsiflexion and plantar flexion of the lower external ear bilaterally Neuro: CN II-XII grossly intact Psych: mood and affect were appropriate IVs and Medications Medications Reviewed: Medications were reviewed in detail Lab and Diagnostics Result Diagram: 05/11/1602 05/11/16 07 X-Rays, CTs and MRIs Radiology reading the chest x-ray and left hip x-ray pending at the time of dictation, no acute cardiopulmonary process identified on chest x-ray, displaced intertrochanteric fracture of left hip. 12-lead ECG EKG showed normal sinus rhythm at a rate of 77 Assessment & Plan 80-year-old female with past medical history of hypertension, scoliosis, arthritis, anxiety, and depression presents to the emergency department after a ground-level fall with left hip pain. Patient is found to have displaced intertrochanteric fracture of the left femur. Displaced intertrochanteric fracture of the left hip, present on admission, acute s/p intertrochanteric nail postop day #1 - Patient had a ground-level fall with no loss of consciousness - Emergency room physician left message on orthopedic surgery voicemail per new protocol, recommended day hospitalist contact orthopedic surgeon surety bond agent. - When necessary Zofran for nausea - Type and cross ordered in case patient needs blood transfusion. -Discontinue IV fluids -Pain control management or to Hypertension, present on admission, acute on chronic -Blood pressure currently stable blood pressures 122/78, the patient has had some hypertensive episodes throughout the evening -Restart amlodipine 2.5 mg -Discontinue IV fluids - Continue to monitor Depression with anxiety, present on admission, chronic - Restart Celexa 20 mg daily Acetaminophen for mild pain when necessary. Bowel regimen Senna and MiraLAX PRN. Zofran when necessary for nausea and vomiting. DVT prophylaxis held until post surgery High-risk medications include IV Dilaudid HOUSING ASSISTANT PROPERTY MANAGER Disposition: Patient is currently doing well and is medically stable. Patient will most likely discharge in the next 1-2 days but this will depend on the recommendations from orthopedics. GI Prophylaxis: Not indicated VTE Mechanical Devices: Intermittant Pneumatic CD Resuscitation Status: CPR: Attempt Resuscitation Time spent Greater than 35 minutes Estela Sauceda DO May 11, 2016 11:49
--- NOTE | 2016-05-11 15:29 | NUR ---
spiritual care: routine conversational visit. pt described procedure and her work in [employer] [facility] and several friends in community. pt appeared reassured as she recounted her social connections. Some repetition in our conversation. Pleasant, polite. pt agreeable for eucharistic visitor
--- NOTE | 2016-05-11 16:16 | NUR ---
Social Work- Continued Discharge Planning Data: EMR reviewed. Pt is on day 1 of hospitalization for L intertrochanteric fracture per H&P. Pt is POD 1. SW followed up with pt and daughter Ann-Marie at bedside regarding discharge plan. PT recommending SNF 05/11. SW explained SNF recommendation. Pt and daughter declining SNF at this time. Daughter states that pt has caregiving benefits that she is working on enacting after hospitalization. SW explained role of HH RN PT. Pt and daughter agreeable to referral. choice list provided. Pt and daughter preferred [facility]. SW provided referral to [facility] liaison [phone] for [facility] RN PT. Access given. Pt to discharge home with daughter to provide transportation. SW will continue to follow for needs, including SNF necessity. Assessment: Pt who would benefit from HH and caregivers. Plan: Pt and daughter declining SNF at this time. Daughter to facilitate caregivers at home. HH RN PT referral provided to [facility]. Pt to discharge home with daughter to provide transportation. SW will continue to follow for needs, including SNF necessity. VIANNEY Duque
--- NOTE | 2016-05-11 16:48 | PCM.PNORTH ---
Subjective Date of Service: May 11, 2016 Visit Information: Reason for Visit L Inertrochanter Fracture Hip Surgery/Surgery Date Post-Op Day # Date of Admission: May 10, 2016 at 01:55 Hospital Day # Subjective Status post day #1 left hip ORIF with dynamic screw. Patient states her pain is fairly well-controlled today. Has not been able to do much with physical therapy due to the weightbearing status. Postop General: No Complaints, No Shortness of Breath, No Chest Pain Objective Exam Objective Patient is alert and oriented 3. Answering questions appropriately. Sitting up in bed and not in any acute distress today. Dressing is clean dry and intact. Patient able to wiggle toes. Calf is soft and non-tender, pulses intact, sensation is full. Vital Signs and I/O Vital Sign - Last Date Time Temp Pulse Resp B/P Pulse Ox O2 Delivery O2 Flow Rate FiO2 05/11/16 14:50 36.4 85 19 101/63 93 Room Air 05/11/16 04:58 1.00 Intake and Output 05/10/16 05/10/16 05/11/16 Cumulative From/Thru 15:00 23:00 07:00 05/10/16 00:15 - 05/11/16 05:53 Intake Total 1770 ml 1081 ml 3851 ml Output Total 400 ml 550 ml 1700 ml Balance 1370 ml 531 ml 2151 ml Intake Oral 200 ml 200 ml IV Total 1770 ml 881 ml 3651 ml Output Urine Total 300 ml 550 ml 1600 ml Estimated Blood Loss 100 ml 100 ml # Bowel Movements 0 0 Lab & Micro Results Laboratory Tests Test 05/11/16 07:02 White Blood Count 8.3th/mm3 (3.8-10.1) Red Blood Count 3.65mil/mm3 (3.90-5.20) Hemoglobin 11.3g/dL (12.0-15.6) Hematocrit 35.1% (35.0-46.0) Mean Corpuscular Volume 96.2fL (81-100) Mean Corpuscular Hemoglobin 31.0pg (27.0-35.0) Mean Corpuscular Hemoglobin Concent 32.2% (32.0-37.0) Red Cell Distribution Width 12.1% (12.3-15.4) Platelet Count 188bil/L (150-400) Neutrophils (%) (Auto) 74.6% (40-74) Lymphocytes (%) (Auto) 14.4% (14-46) Monocytes (%) (Auto) 8.5% (4-12) Eosinophils (%) (Auto) 1.8% (0-5) Basophils (%) (Auto) 0.5% (0-3) Sodium Level 137mEq/L (134-144) Potassium Level 4.1mEq/L (3.5-5.2) Chloride Level 101mEq/L (97-108) Carbon Dioxide Level 22mmol/L (18-29) Blood Urea Nitrogen 12mg/dL (8-27) Creatinine 0.73mg/dL (0.57-1.00) Estimat Glomerular Filtration Rate 110mL/min (>59) Glucose Level 124mg/dL (60-99) Calcium Level 7.9mg/dL (8.5-10.1) Total Bilirubin 0.7mg/dL (0.0-1.2) Aspartate Amino Transf (AST/SGOT) 30U/L (0-50) Alanine Aminotransferase (ALT/SGPT) 15U/L (0-32) Alkaline Phosphatase 78U/L (25-165) Total Protein 5.3g/dL (6.4-8.4) Albumin 3.2g/dL (3.4-5.0) Result Diagram: 05/11/1670105/11/16701 Assessment & Plan Impression Status post day #1 left hip ORIF with dynamic screw. Patient doing well as far as pain is concerned. We will continue to watch her for better voiding and continue to work with physical therapy. Do not believe she will be able to function independently with a 50% weightbearing status of the left lower extremity. Anticipate SNF. Problems: Plan Patient will begin working with physical therapy today for bedside assist and transfer training with 50% weightbearing status on the left lower extremity. Patient will take Lovenox 40 mg subcutaneous daily 18 days, then aspirin 325 mg tablets by mouth twice a day following the Lovenox for a total of 6 weeks prophylaxis. Patient given prescription for [place] 5/325 mg tablets to utilize for pain control when necessary. Anticipate the patient will remain in the hospital for 2 more days. Unless she is able to progress significantly with physical therapy and be fairly independent, will most likely require transfer to SNF as this is trauma and patient has over 14 steps to enter the home. Resuscitation Status: CPR: Attempt Resuscitation [place] PA-C May 11, 2016 16:48
--- NOTE | 2016-05-11 17:41 | NUR ---
Wound Care Pressure ulcer protocol received, 80 yo female s/p left hip frx with hip pinning. No pressure related skin issues identified at this time.
--- NOTE | 2016-05-11 18:39 | NUR ---
Confusion Pt continues to have intermittent confusion and has attempted to get OOB. She is easily reoriented and acknowledges she is forgetting more. Per her daughter, pt has recently been diagnosed with dementia but this is worse than her recent baseline. Pt takes Vicodin at home, but Tylenol was still added to pain regimen to reduce the need for narcotics to prevent worsening confusion. Per [place], we will restart home Tramadol to pain regimen. [place] alarm on for safety and regular rounding to prevent worsening confusion.
[2016-05-11] MEDS: 0.9% Sodium Chloride 500 ML IV ONE ×2 (21:00→21:33)
[2016-05-11 21:15] LABS: BASOPHILS % (AUTO) 0.4 % (0-3); MONOCYTES % (AUTO) 8.6 % (4-12); Mean Corpuscular Hemoglobin 30.7 pg (27.0-35.0); Mean Corpuscular Volume 95.7 fL (81-100); NEUTROPHILS % (AUTO) 70.5 % (40-74); Platelet Count 171 bil/L (150-400)
[2016-05-12] MEDS: Sodium Chloride LOK Flush 10 mL Syringe IV SCH ×3 (00:24→16:38)
[2016-05-12 01:25] VITALS: BP 138/77; PULSE 81; RESP 16; O2SAT 95
--- NOTE | 2016-05-12 04:24 | NUR ---
Low B/P / pain Had low B/P, asymptomatic; fluid bolus given and serial H&H labs taken. H&H has dropped but remains steady tonight. B/P improved after bolus, continue with saline lock per Md. Pain being well managed with minimal use of narcotics, pt has not tried to exit bed tonight. Denies significant pain until moving. Mild disorientation continues, easily reoriented to situation and place. Hourly rounding continues.
[2016-05-12] MEDS: hydrOXYzine Pamoate 25 mg Capsule PO PRN ×2 (05:18→09:30)
[2016-05-12 05:32] VITALS: BP 145/77; PULSE 83; RESP 16; O2SAT 92
[2016-05-12 06:27] LABS: BASOPHILS % (AUTO) 0.4 % (0-3); EOSINOPHILS % (AUTO) 2.6 % (0-5); MONOCYTES % (AUTO) 9.6 % (4-12); Mean Corpuscular Hemoglobin 30.7 pg (27.0-35.0); Mean Corpuscular Volume 94.5 fL (81-100); NEUTROPHILS % (AUTO) 70.3 % (40-74); Platelet Count 184 bil/L (150-400)
[2016-05-12 07:33] VITALS: BP 147/77; PULSE 89; RESP 18; O2SAT 95
[2016-05-12] MEDS: Senna-Docusate 8.6-50 mg Tablet PO SCH ×2 (09:17→20:56)
[2016-05-12] MEDS: HYDROcodone-APAP 5-325 mg Tablet PO PRN ×2 (09:19→15:44)
--- NOTE | 2016-05-12 09:21 | PCM.PNORTH ---
Subjective Date of Service: May 12, 2016 Visit Information: Reason for Visit L Inertrochanter Fracture Hip Surgery/Surgery Date Post-Op Day # Date of Admission: May 10, 2016 at 01:55 Hospital Day # Subjective Status post day #2 left hip ORIF with dynamic screw. Patient doing well as far as pain is concerned, pain increases with any movement in the bed. Patient is a little bit of work with physical therapy yesterday. Denies any calf pain or other problems. Postop General: No Complaints, No Shortness of Breath, No Chest Pain Objective Exam Objective Patient is alert and oriented 3. Answering questions appropriately. Sitting up in bed and not in any acute distress today. Dressing is clean dry and intact. Patient able to wiggle toes. Calf is soft and non-tender, pulses intact, sensation is full. Upon dressing change, incision and mannie are intact, no drainage or discharge , no erythema to the wound. Hemoglobin and hematocrit are very stable. Vital Signs and I/O Vital Sign - Last Date Time Temp Pulse Resp B/P Pulse Ox O2 Delivery O2 Flow Rate FiO2 05/12/16 07:33 36.8 89 18 147/77 95 Room Air 05/11/16 04:58 1.00 Intake and Output 05/11/16 05/11/16 05/12/16 Cumulative From/Thru 15:00 23:00 07:00 05/10/16 00:15 - 05/12/16 05:32 Intake Total 567 ml 810 ml 5228 ml Output Total 800 ml 700 ml 3200 ml Balance -233 ml 110 ml 2028 ml Intake Oral 360 ml 200 ml 760 ml IV Total 207 ml 610 ml 4468 ml Output Urine Total 800 ml 700 ml 3100 ml Estimated Blood Loss 100 ml # Bowel Movements 0 Lab & Micro Results Laboratory Tests Test 05/11/16 21:10 05/12/16 01:20 05/12/16 05:50 White Blood Count 7.2th/mm3 (3.8-10.1) 7.3th/mm3 (3.8-10.1) Red Blood Count 3.03mil/mm3 (3.90-5.20) 3.29mil/mm3 (3.90-5.20) Hemoglobin 9.3g/dL (12.0-15.6) 9.6g/dL (12.0-15.6) 10.1g/dL (12.0-15.6) Hematocrit 29.0% (35.0-46.0) 30.0% (35.0-46.0) 31.1% (35.0-46.0) Mean Corpuscular Volume 95.7fL (81-100) 94.5fL (81-100) Mean Corpuscular Hemoglobin 30.7pg (27.0-35.0) 30.7pg (27.0-35.0) Mean Corpuscular Hemoglobin Concent 32.1% (32.0-37.0) 32.5% (32.0-37.0) Red Cell Distribution Width 12.0% (12.3-15.4) 12.1% (12.3-15.4) Platelet Count 171bil/L (150-400) 184bil/L (150-400) Neutrophils (%) (Auto) 70.5% (40-74) 70.3% (40-74) Lymphocytes (%) (Auto) 19.2% (14-46) 16.8% (14-46) Monocytes (%) (Auto) 8.6% (4-12) 9.6% (4-12) Eosinophils (%) (Auto) 1.0% (0-5) 2.6% (0-5) Basophils (%) (Auto) 0.4% (0-3) 0.4% (0-3) Sodium Level 135mEq/L (134-144) 135mEq/L (134-144) Potassium Level 3.5mEq/L (3.5-5.2) 3.7mEq/L (3.5-5.2) Chloride Level 102mEq/L (97-108) 103mEq/L (97-108) Carbon Dioxide Level 20mmol/L (18-29) 22mmol/L (18-29) Blood Urea Nitrogen 19mg/dL (8-27) 13mg/dL (8-27) Creatinine 0.88mg/dL (0.57-1.00) 0.64mg/dL (0.57-1.00) Estimat Glomerular Filtration Rate 89mL/min (>59) 128mL/min (>59) Glucose Level 155mg/dL (60-99) 99mg/dL (60-99) Calcium Level 7.7mg/dL (8.5-10.1) 7.7mg/dL (8.5-10.1) Result Diagram: 05/12/16 0550 05/12/16 0550 Assessment & Plan Impression Status post day #2 left hip ORIF with dynamic screw. Patient doing well as far as pain is concerned. We will continue to watch her for 4 physical therapy progression. Do not believe she will be able to function independently with a 50% weightbearing status of the left lower extremity. Anticipate SNF. Problems: Plan Patient will continue working with physical therapy today for bedside assist and transfer training with 50% weightbearing status on the left lower extremity. Dressing changed today to simple island dressing. We will continue to change dressing as needed if saturating. Patient will take Lovenox 40 mg subcutaneous daily 18 days, then aspirin 325 mg tablets by mouth twice a day following the Lovenox for a total of 6 weeks prophylaxis. Patient given prescription for Ipava 5/325 mg tablets to utilize for pain control when necessary. Anticipate the patient will remain in the hospital for 1 more day. Unless she is able to progress significantly with physical therapy and be fairly independent, will most likely require transfer to SNF as this is trauma and patient has over 14 steps to enter the home. Resuscitation Status: CPR: Attempt Resuscitation [place] PA-C May 12, 2016 09:21
[2016-05-12 12:57] VITALS: BP 110/63; PULSE 86; RESP 18; O2SAT 94
--- NOTE | 2016-05-12 13:12 | NUR ---
SNF Choice List provided. Marlin Cooper MSW
--- NOTE | 2016-05-12 15:02 | NUR ---
Faxed clinicals to Iam Cuello @ [facility] and they can accept patient when ready with to follow. They will have a bed on Sunday. Updated MUSICAL STRING MAKER
--- NOTE | 2016-05-12 15:25 | NUR ---
Evaluation completed. Please go to "Notes" then click on "Assessments and Notes" (bottom left corner of screen). Then select appropriate discipline tab on top of screen.
--- NOTE | 2016-05-12 16:28 | NUR ---
Social Work- Continued D/C Planning Data: EMR reviewed. Pt is on day 2 of hospitalization for left intertrochanteric hip fracture per H&P. Pt is POD 2. SW followed up with pt's daughter regarding discharge plan. PT recommending SNF 05/11. Pt's daughter willing to discharge to SNF rather than home with HH. SNF choice list provided. Daughter choiced [facility] and [facility]. UR Specialist faxed clinicals to both facilities. SW received acceptance from [facility] with [facility] to follow and [facility] with [facility] to follow. Pt's daughter preferred [facility]. Pt to discharge to [facility] with [facility] to follow. Paperwork in chart. [facility] faxed to [facility]. All updated and agreeable to plan. SW will continue to follow. Assessment: Pt who would benefit from SNF. Plan: Pt to discharge to [facility] with MD [facility] to follow. Paperwork in chart. [facility] faxed to [facility]. All updated and agreeable to plan. SW will continue to follow. VIANNEY Duque
--- NOTE | 2016-05-12 16:42 | PCM.PNMED ---
Subjective Date of Service May 12, 2016 Subjective Patient was seen and examined at bedside today. Patient denies any chest pain, shortness of breath, nausea, vomiting, diarrhea. Patient only complains of left lower extremity pain with movement however she states that the pain medications do seem to be helping. Exam Vital Signs Vital Sign - Last Date Time Temp Pulse Resp B/P Pulse Ox O2 Delivery O2 Flow Rate FiO2 05/12/16 12:57 36.5 86 18 110/63 94 Room Air 05/11/16 04:58 1.00 Intake and Output 05/11/16 05/11/16 05/12/16 Cumulative From/Thru 15:00 23:00 07:00 05/10/16 00:15 - 05/12/16 05:32 Intake Total 567 ml 810 ml 5228 ml Output Total 800 ml 700 ml 3200 ml Balance -233 ml 110 ml 2028 ml Intake Oral 360 ml 200 ml 760 ml IV Total 207 ml 610 ml 4468 ml Output Urine Total 800 ml 700 ml 3100 ml Estimated Blood Loss 100 ml # Bowel Movements 0 Exam Physical Exam: GEN: Patient was awake, alert, responding appropriately to questions HEENT: PERRLA, EOMI, Neck soft supple, trachea midline, nomocephalic/atraumatic CV: +S1/S2, RRR, no murmur auscultated Respiratory: CTAB, no wheezes, rales, rhonchi GI: +bowel sounds x4, soft, compressible, non TTP EXT: no c/c/e, left lower extremity dressing clean dry and intact Neuro: CN II-XII grossly intact Psych: mood and affect were appropriate IVs and Medications Medications Reviewed: Medications were reviewed in detail Lab and Diagnostics Result Diagram: 05/12/16 0550 05/12/16 0550 X-Rays, CTs and MRIs Radiology reading the chest x-ray and left hip x-ray pending at the time of dictation, no acute cardiopulmonary process identified on chest x-ray, displaced intertrochanteric fracture of left hip. 12-lead ECG EKG showed normal sinus rhythm at a rate of 77 Assessment & Plan 80-year-old female with past medical history of hypertension, scoliosis, arthritis, anxiety, and depression presents to the emergency department after a ground-level fall with left hip pain. Patient is found to have displaced intertrochanteric fracture of the left femur. Displaced intertrochanteric fracture of the left hip, present on admission, acute s/p ORIF postop day #2 - Patient had a ground-level fall with no loss of consciousness - Emergency room physician left message on orthopedic surgery voicemail per new protocol, recommended day hospitalist contact orthopedic surgeon forensic identification specialist. - When necessary Zofran for nausea - Type and cross ordered in case patient needs blood transfusion. -Discontinue IV fluids -Pain control management by orthopedics Hypertension, present on admission, acute on chronic -Blood pressure currently stable blood pressures 122/78, the patient has had some hypertensive episodes throughout the evening -Restart amlodipine 2.5 mg -Discontinue IV fluids - Continue to monitor Depression with anxiety, present on admission, chronic - Restart Celexa 20 mg daily Acetaminophen for mild pain when necessary. Bowel regimen Senna and MiraLAX PRN. Zofran when necessary for nausea and vomiting. DVT prophylaxis held until post surgery High-risk medications include IV Dilaudid PROGRAM SUPPORT CLERK Disposition: There is some concern is the patient's mentation has been altered. The daughter states that the mother does have a new diagnosis of dementia and feels that a residential facility will be a better placement for the patient than at home. At this time the patient is medically stable and orthopedics is recommending that the patient go to a residential facility for rehabilitation. We will continue to discuss with case management and the patient should be ready for discharge to a residential facility in the next 1-2 days. GI Prophylaxis: Not indicated VTE Mechanical Devices: Intermittant Pneumatic CD Resuscitation Status: CPR: Attempt Resuscitation Time spent 30 minutes Estela Sauceda DO May 12, 2016 16:42
--- NOTE | 2016-05-12 17:48 | NUR ---
Pain/Orientation Pain better controlled today with Tramadol q6hr (home medication) and Vicodin q 4-6 hrs. Vistaril not given with last dose of Vicodin and pt appears to be less cognitively impaired. She has continued to be cooperative with staff and is more involved and helpful with turns and getting on the bedpan.
[2016-05-12 21:01] VITALS: BP 112/67; PULSE 89; RESP 16; O2SAT 94
[2016-05-13] MEDS: Sodium Chloride LOK Flush 10 mL Syringe IV SCH ×3 (00:50→21:43)
[2016-05-13] MEDS: HYDROcodone-APAP 5-325 mg Tablet PO PRN ×3 (01:57→19:07)
[2016-05-13 04:50] VITALS: BP 148/79; PULSE 84; RESP 16; O2SAT 94
--- NOTE | 2016-05-13 05:39 | NUR ---
Mentation/Activity Patient had episodes of confusion during the night. Patient was not sure if she was home or at the hospital. Patient also thought she was going to "fly" or " jump" out of bed. Patient was very guarded and hesitant moving lower extremities to turn. Patient would push instead of pull. Pain medication was administered after turning as patient stated pain was at a 8/10 on pain scale. VSS. Call light within reach. Care continues.
--- NOTE | 2016-05-13 08:13 | PCM.PNORTH ---
Subjective Date of Service: May 13, 2016 Visit Information: Reason for Visit L Inertrochanter Fracture Hip Surgery/Surgery Date Post-Op Day # Date of Admission: May 10, 2016 at 01:55 Hospital Day # Subjective Status post day #3 left hip ORIF with dynamic screw. Patient's pain is doing well. Patient states she has not had a bowel movement and is not able to ambulate well so far with physical therapy. She feels very tired. Definitely feels better than the last 2 days. Postop General: No Complaints, No Shortness of Breath, No Chest Pain Objective Exam Objective Patient is alert and oriented 3. Answering questions appropriately. Sitting up in bed and not in any acute distress today. Dressing is clean dry and intact. Patient able to wiggle toes. Calf is soft and non-tender, pulses intact, sensation is full. Vital Signs and I/O Vital Sign - Last Date Time Temp Pulse Resp B/P Pulse Ox O2 Delivery O2 Flow Rate FiO2 05/13/16 04:50 36.7 84 16 148/79 94 Room Air 05/12/16 21:01 2.00 Intake and Output 05/12/16 05/12/16 05/13/16 Cumulative From/Thru 15:00 23:00 07:00 05/10/16 00:15 - 05/13/16 04:59 Intake Total 400 ml 400 ml 6028 ml Output Total 400 ml 375 ml 3975 ml Balance 0 ml 25 ml 2053 ml Intake Oral 400 ml 400 ml 1560 ml IV Total 4468 ml Output Urine Total 400 ml 375 ml 3875 ml Estimated Blood Loss 100 ml # Bowel Movements 0 0 Result Diagram: 05/12/16 0550 05/12/16 0550 Assessment & Plan Impression Status post day #3 left hip ORIF with dynamic screw. Patient's pain is well controlled. Labs are stable. Not ambulating well and recommend SNF transfer. Problems: Plan Patient will continue working with physical therapy today and at SNF for bedside assist and transfer training with 50% weightbearing status on the left lower extremity. We will continue to change dressing as needed if saturating, recommend keeping the incision clean dry and intact while in any care facility. Patient will take Lovenox 40 mg subcutaneous daily 18 days, then aspirin 325 mg tablets by mouth twice a day following the Lovenox for a total of 6 weeks prophylaxis. Patient given prescription for [place] 5/325 mg tablets to utilize for pain control when necessary. Thank you to the hospitalist service for managing her other conditions. Orthopedics will sign off at this point as she is ready for transfer from our perspective, recommend SNF as patient is not stable and it is a fall risk to discharge to home. Resuscitation Status: CPR: Attempt Resuscitation [place] PA-C May 13, 2016 08:13
[2016-05-13] MEDS: Senna-Docusate 8.6-50 mg Tablet PO SCH ×2 (09:56→20:30)
--- NOTE | 2016-05-13 10:37 | NUR ---
Social Work- Readiness for Discharge Data: EMR reviewed. Pt is on day 3 of hospitalization for left intertrochanteric hip fracture per H&P. Pt is POD 3. Pt is not medically stable, anticipate discharge tomorrow. PT continues to recommend SNF. SW followed up with pt's daughter regarding discharge plan. Daughter informed SW that she is looking at [facility] in [place], referral made and [facility] accepts pt with MD [facility] to follow. Daughter continues to tour facilities. Unless otherwise notified, Pt to discharge to [facility] with MD [facility]ina to follow. Paperwork in chart. [facility] faxed to [facility]. All updated and agreeable to plan. SW will continue to follow. Assessment: Pt who would benefit from SNF. Plan: Pt to discharge to [facility] with MD [facility] to follow. Paperwork in chart. [facility] faxed to [facility]. All updated and agreeable to plan. SW will continue to follow. VIANNEY Duque
--- NOTE | 2016-05-13 14:40 | PCM.PNMED ---
Subjective Date of Service May 13, 2016 Subjective Patient was seen and examined at bedside today. Patient denies any chest pain, shortness of breath, nausea, vomiting, diarrhea. Patient complains only of left lower extremity pain. The patient's daughter was present at bedside today and has concerns about the patient being discharged to a assisted facility. All questions were answered to the patient's satisfaction and the patient's daughter will evaluate one more assisted facility and then decide on where to send the patient for tomorrow. Exam Vital Signs Vital Sign - Last Date Time Temp Pulse Resp B/P Pulse Ox O2 Delivery O2 Flow Rate FiO2 05/13/16 10:20 Room Air 05/13/16 04:50 36.7 84 16 148/79 94 05/12/16 21:01 2.00 Intake and Output 05/12/16 05/12/16 05/13/16 Cumulative From/Thru 15:00 23:00 07:00 05/10/16 00:15 - 05/13/16 04:59 Intake Total 400 ml 400 ml 6028 ml Output Total 400 ml 375 ml 3975 ml Balance 0 ml 25 ml 2053 ml Intake Oral 400 ml 400 ml 1560 ml IV Total 4468 ml Output Urine Total 400 ml 375 ml 3875 ml Estimated Blood Loss 100 ml # Bowel Movements 0 0 Exam Physical Exam: GEN: Patient was awake, alert, responding appropriately to questions HEENT: PERRLA, EOMI, Neck soft supple, trachea midline, nomocephalic/atraumatic CV: +S1/S2, RRR, no murmur auscultated Respiratory: CTAB, no wheezes, rales, rhonchi GI: +bowel sounds x4, soft, compressible, non TTP EXT: no c/c/e, left lower extremity incision covered in dressing, dressing was clean dry and intact Neuro: CN II-XII grossly intact Psych: mood and affect were appropriate IVs and Medications Medications Reviewed: Medications were reviewed in detail Lab and Diagnostics Result Diagram: 05/12/16 0550 05/12/16 0550 X-Rays, CTs and MRIs Radiology reading the chest x-ray and left hip x-ray pending at the time of dictation, no acute cardiopulmonary process identified on chest x-ray, displaced intertrochanteric fracture of left hip. 12-lead ECG EKG showed normal sinus rhythm at a rate of 77 Assessment & Plan 80-year-old female with past medical history of hypertension, scoliosis, arthritis, anxiety, and depression presents to the emergency department after a ground-level fall with left hip pain. Patient is found to have displaced intertrochanteric fracture of the left femur. Displaced intertrochanteric fracture of the left hip, present on admission, acute s/p ORIF postop day #2 - Patient had a ground-level fall with no loss of consciousness - Emergency room physician left message on orthopedic surgery voicemail per new protocol, recommended day hospitalist contact orthopedic surgeon contractor general engineering. - When necessary Zofran for nausea - Type and cross ordered in case patient needs blood transfusion. -Discontinue IV fluids -Pain control management by orthopedics Hypertension, present on admission, acute on chronic -Blood pressure currently stable blood pressures 122/78, the patient has had some hypertensive episodes throughout the evening -Restart amlodipine 2.5 mg -Discontinue IV fluids - Continue to monitor Depression with anxiety, present on admission, chronic - Continue Celexa 20 mg daily Acetaminophen for mild pain when necessary. Bowel regimen Senna and MiraLAX PRN. Zofran when necessary for nausea and vomiting. DVT prophylaxis held until post surgery High-risk medications include IV Dilaudid SUPERVISOR PASTE PLANT Disposition: There is some concern is the patient's mentation has been altered. The daughter has some concerns for the patient and assisted facilities. Since the patient has a new onset of dementia it is important to the patient's daughter that the patient does have some sort of alarm system on her to alert the staff when the patient is trying to move. Both the daughter and the patient had concerns that the patient was not stable enough to be transferred to a assisted facility. I had a detailed in-depth conversation with both of them to answer any other questions/concerns. The patient will be transferred to a assisted facility tomorrow. Patient is currently clinically stable. GI Prophylaxis: Not indicated VTE Mechanical Devices: Intermittant Pneumatic CD Resuscitation Status: CPR: Attempt Resuscitation Time spent Greater than 45 minutes Estela Sauceda DO May 13, 2016 14:40
--- NOTE | 2016-05-13 15:24 | NUR ---
Social Work- Readiness for Discharge Data: EMR reviewed. Pt is on day 3 of hospitalization for left intertrochanteric hip fracture per H&P. Pt is POD 3. Pt is not medically stable, anticipate discharge tomorrow. PT continues to recommend SNF. SW followed up with pt's daughter regarding discharge plan. Daughter informed SW that she prefers [facility] for rehab, as it is closer to pt's friends and family. SW enforced that this is the final decision. Daughter agreeable. PAM spoke with Liza, admissions at [facility] [phone], who is agreeable to accepting pt tomorrow. [facility] to coordinate transport via cabulance at 1100 05/14/16. PAM spoke with Iam, admissions at [facility] [phone], cancelling transport/admission for pt. Paperwork in chart. [facility] faxed to [facility]. All updated and agreeable to plan. SW will continue to follow. Assessment: Pt who would benefit from SNF. Plan: Pt to discharge to [facility] via cabulance 05-14-16 @ 1100 with [facility] to follow. Paperwork in chart. [facility] faxed and in packet. All updated and agreeable to plan. SW will continue to follow. VIANNEY Duque
[2016-05-13 15:29] VITALS: BP 138/76; PULSE 86; RESP 16; O2SAT 95
--- NOTE | 2016-05-13 20:01 | NUR ---
Activity This RN was present during Physical Therapy session. Pt up w/ PT to BSC w great difficulty. Pt remains as up with PT only at this time. Bed mcdaniel used for toileting needs. Pain medication administered per pt request. Pt has been a&ox3 this shift and call light appropriate. Bed down and in locked position
[2016-05-13 20:30] VITALS: BP 148/72; PULSE 85; RESP 20; O2SAT 95
--- NOTE | 2016-05-13 23:43 | NUR ---
ACTIVITY: Pt. was repositioned in bed at , was given 1 Vicodin by evening RN, pt. now is comfortable denies pain. Has been pleasant and cooperative with her care this evening, a bit forgetful. Resting in bed asleep at this time. [place] alarm on for safety. On going care.
[2016-05-14] MEDS: Sodium Chloride LOK Flush 10 mL Syringe IV SCH ×2 (01:03→08:19)
[2016-05-14 04:31] VITALS: BP 127/75; PULSE 91; RESP 18; O2SAT 94
[2016-05-14 05:49] LABS: Mean Corpuscular Hemoglobin 30.2 pg (27.0-35.0); Mean Corpuscular Volume 94.8 fL (81-100)
[2016-05-14] MEDS: HYDROcodone-APAP 5-325 mg Tablet PO PRN (08:19)
[2016-05-14] MEDS: Senna-Docusate 8.6-50 mg Tablet PO SCH (08:21)
--- NOTE | 2016-05-14 10:15 | PCM.DIMED ---
Discharge Instructions Date of Service May 14, 2016 Dates of Hospitalization May 10, 2016 at 01:55 Discharge Diagnosis Discharge Diagnosis Left intertrochanteric fracture s/p ORIF 05/10/16 Hypertension Depression Diet No restrictions Activity Other (please follow the recommendations of physical therapy 50% weight bearing) Patient Instructions Follow-up Provider: [facility] MD Follow-up with PCP in: 1 week Estela Sauceda DO May 14, 2016 10:15
[2016-05-14] MEDS ORDERED: CALC500T53 PO (10:17)
[2016-05-14] MEDS ORDERED: HYDR-4003 PO (10:17)
--- NOTE | 2016-05-14 10:22 | PCM.DC.MED ---
Discharge Summary Date of Service May 14, 2016 Dates of Hospitalization Date of Hospital Admission May 10, 2016 at 01:55 Date of Discharge: May 14, 2016 Providers: Admitting Physician: Fatou Saavedra MD Primary Care Physician: Froy River MD Attending Physician: Fatou Saavedra MD Diagnosis at Time of Discharge Diagnosis at Time of Discharge Left intertrochanteric fracture s/p ORIF 05/10/16 Hypertension Depression Consultations Orthopedics (Dr Pascual) Procedures XRay, CTs & MRIs Radiology reading the chest x-ray and left hip x-ray pending at the time of dictation, no acute cardiopulmonary process identified on chest x-ray, displaced intertrochanteric fracture of left hip. ECG 12 Lead EKG showed normal sinus rhythm at a rate of 77 Brief History 80-year-old female with past medical history of hypertension, scoliosis, arthritis, anxiety, and depression presents to the emergency department after a ground-level fall with left hip pain. Patient was getting ready for bed, she was standing while trying to get her leg out of her pants and she lost her balance, she reached through the air and could not catch herself. She ended up falling onto her left hip. She did not lose consciousness, she reports no other areas of impact or pain. After the fall she was unable to get up or move. She is having discomfort in that she feels as if she cannot find a comfortable position for her legs. Each time she tries to move or adjust she experiences a pain that "grabs me". Patient reports left-sided leg pain and discomfort, and constipation. She denies chest pain, shortness of breath, and headache. In the emergency department patient was stable with hypertension of 177/96. Pelvis x-ray reveals left sided displaced intertrochanteric hip fracture. Chest x-ray shows no acute cardiopulmonary process. Troponin negative, serum alcohol negative. Hospital Course 80-year-old female with past medical history of hypertension, scoliosis, arthritis, anxiety, and depression presents to the emergency department after a ground-level fall with left hip pain. Patient is found to have displaced intertrochanteric fracture of the left femur. Patient presented on 05/10/2016 secondary to a trip and fall causing a left intertrochanteric hip fracture. The patient was taken to surgery for surgical repair on 05/10/2016. The patient seemed to tolerate the procedure well however the patient is still having difficulty ambulating and it was thought that she would best progress if she was at a senior living facility. There have been some concerns with her daughter for a new onset of dementia. During the patient's stay here it was evident that the patient did have some signs of dementia as she frequently did not know where she was or what answer questions inappropriately. The patient's daughter was told that she should follow-up on this as an outpatient for further dementia management. It was decided that the patient should go to a senior living facility where she could be watched and would not harm herself while the daughter was at work. The patient will continue her physical therapy while in the senior living facility. Patient is being discharged to senior living facility in stable condition Hospital course while inpatient: Displaced intertrochanteric fracture of the left hip, present on admission, acute s/p ORIF postop day #2 - Patient had a ground-level fall with no loss of consciousness - Emergency room physician left message on orthopedic surgery voicemail per new protocol, recommended day hospitalist contact orthopedic surgeon [facility] consultant. - When necessary Zofran for nausea - Type and cross ordered in case patient needs blood transfusion. -Discontinue IV fluids -Pain control management by orthopedics Hypertension, present on admission, acute on chronic -Blood pressure currently stable blood pressures 122/78, the patient has had some hypertensive episodes throughout the evening -Restart amlodipine 2.5 mg -Discontinue IV fluids - Continue to monitor Depression with anxiety, present on admission, chronic - Continue Celexa 20 mg daily Acetaminophen for mild pain when necessary. Bowel regimen Senna and MiraLAX PRN. Zofran when necessary for nausea and vomiting. DVT prophylaxis held until post surgery High-risk medications include IV Dilaudid [employer] TE[employer]ER Disposition: There is some concern is the patient's mentation has been altered. The daughter has some concerns for the patient and senior living facilities. Since the patient has a new onset of dementia it is important to the patient's daughter that the patient does have some sort of alarm system on her to alert the staff when the patient is trying to move. Both the daughter and the patient had concerns that the patient was not stable enough to be transferred to a senior living facility. I had a detailed in-depth conversation with both of them to answer any other questions/concerns. The patient will be transferred to a senior living facility tomorrow. Patient is currently clinically stable. Exam Vital Signs (Last) Date Time Temp Pulse Resp B/P Pulse Ox O2 Delivery O2 Flow Rate FiO2 05/14/16 05:00 Supplement Oxygen 05/14/16 04:31 37.2 91 18 127/75 94 05/12/16 21:01 2.00 Exam Physical Exam: GEN: Patient was awake, alert, responding appropriately to questions HEENT: PERRLA, EOMI, Neck soft supple, trachea midline, nomocephalic/atraumatic CV: +S1/S2, RRR, no murmur auscultated Respiratory: CTAB, no wheezes, rales, rhonchi GI: +bowel sounds x4, soft, compressible, non TTP Skin: Incisional site mannie in place clean dry and intact no signs of erythema or edema EXT: no c/c/e Neuro: CN II-XII grossly intact Psych: mood and affect were appropriate Test 05/10/16 01:17 05/10/16 08:42 05/11/16 07:02 05/12/16 05:50 Prothrombin Time 10.6sec (8.1-12.5) Prothromb Time International Ratio 0.99ratio Activated Partial Thromboplast Time 25.9sec (22.8-33.0) Magnesium Level 1.9mg/dL (1.6-2.6) Troponin T 0.010ug/L (0.0-0.011) Lipase 29U/L (13-60) Alcohols < 10mg/dL (0-10) Urine Color Straw (YELLOW) Urine Appearance Hazy (CLEAR,HAZY) Urine pH 6.5 (5.0-8.0) Urine Specific [place] 1.020 (1.003-1.035) Urine Protein Negativemg/dL (NEG,TRACE) Urine Glucose (UA) Negativemg/dL (NEGATIVE) Urine Ketones Negativemg/dL (NEGATIVE) Urine Occult Blood Small (NEGATIVE) Urine Nitrite Negative (NEGATIVE) Urine Bilirubin Negative (NEGATIVE) Urine Urobilinogen Normalmg/dL (NORMAL) Urine Leukocyte Esterase Negative (NEGATIVE) Urine RBC 0-2/hpf (0-2) Urine WBC 0-5/hpf (0-5) Urine Epithelial Cells Occasional/hpf (NONE-MOD) Urine Crystals None seen (NONE SEEN) Urine Bacteria Few/hpf (NONE-FEW) Urine Hyaline Casts None/lpf (NONE) Urine Granular Casts None seen (NONE SEEN) Urine Waxy Casts None seen (NONE SEEN) Urine Red Blood Cell Casts None seen (NONE SEEN) Urine White Blood Cell Casts None seen (NONE SEEN) Urine Mucus None seen (None Seen) Urine Trichomonas None seen (NONE SEEN) Urine Yeast None (NONE SEEN) Urinalysis Comment None Urine Culture Reflexed Not indicated Total Bilirubin 0.7mg/dL (0.0-1.2) Aspartate Amino Transf (AST/SGOT) 30U/L (0-50) Alanine Aminotransferase (ALT/SGPT) 15U/L (0-32) Alkaline Phosphatase 78U/L (25-165) Total Protein 5.3g/dL (6.4-8.4) Albumin 3.2g/dL (3.4-5.0) Neutrophils (%) (Auto) 70.3% (40-74) Lymphocytes (%) (Auto) 16.8% (14-46) Monocytes (%) (Auto) 9.6% (4-12) Eosinophils (%) (Auto) 2.6% (0-5) Basophils (%) (Auto) 0.4% (0-3) Sodium Level 135mEq/L (134-144) Potassium Level 3.7mEq/L (3.5-5.2) Chloride Level 103mEq/L (97-108) Carbon Dioxide Level 22mmol/L (18-29) Blood Urea Nitrogen 13mg/dL (8-27) Creatinine 0.64mg/dL (0.57-1.00) Estimat Glomerular Filtration Rate 128mL/min (>59) Glucose Level 99mg/dL (60-99) Calcium Level 7.7mg/dL (8.5-10.1) Test 05/14/16 05:15 White Blood Count 7.3th/mm3 (3.8-10.1) Red Blood Count 3.28mil/mm3 (3.90-5.20) Hemoglobin 9.9g/dL (12.0-15.6) Hematocrit 31.1% (35.0-46.0) Mean Corpuscular Volume 94.8fL (81-100) Mean Corpuscular Hemoglobin 30.2pg (27.0-35.0) Mean Corpuscular Hemoglobin Concent 31.8% (32.0-37.0) Red Cell Distribution Width 12.5% (12.3-15.4) Platelet Count 230bil/L (150-400) Discharge Medications Discharge Medications Amlodipine (Amlodipine) 2.5 Mg Tablet 2.5 MG PO DAILY (Reported) Calcium Carbonate (Calcium Carbonate) 200 Mg Tab.chew 500 MG PO TIDWM Prescribed by: KASI CHAPA DO Citalopram (Citalopram) 20 Mg Tablet 20 MG PO DAILY (Reported) As needed Hydrocodone-Acetaminophen 5-325 mg (Hydrocodone-Acetaminophen 5-325 mg) 1 Each Tablet 1-2 TABLET PO Q4H PRN PRN For Moderate Pain Prescribed by: KASI CHAPA DO Tramadol (Tramadol) 50 Mg Tablet 50 MG PO q6 PRN PRN For Pain (Reported) Followup Plan Follow-up plan Follow-up with primary care for dementia management Discharge Diet: No restrictions Discharge Activity: Other (please follow the recommendations of physical therapy 50% weight bearing) Follow-up Provider: Froy River MD Follow-up with PCP in: 1 week Time spent Greater than 35 minutes copies to: Froy River MD, Precious L DO May 14, 2016 10:22
--- NOTE | 2016-05-14 10:42 | NUR ---
Social Work- Discharge Data: EMR reviewed. Pt is on day 4 of hospitalization for left intertrochanteric fracture per H&P. Pt to discharge today. PT continues to recommend SNF placement. PAM spoke with Liza, weekend admissions at [facility], who is agreeable to accepting pt today. Liza arranged transportation via cabulance at 1100. PAM created packet and faxed orders. PAM updated pt at bedside and informed daughter Ann-Marie of discharge. RN, UC, pt/family and [facility] all updated and agreeable to plan. Assessment: Pt who would benefit from SNF. Plan: Pt to discharge to [facility] today via cabulance at 1100. RN, UC, pt/family and [facility] all updated and agreeable to plan. Marlin Cooper MSW
--- NOTE | 2016-05-14 11:00 | NUR ---
discharged to [facility]. Eating/drinking well, working with PT, 50% WB on LLE, VSS, report called to SNF, transported per cabulance
[2016-05-14] MEDS ORDERED: TRAM-14 PO (11:12)
--- NOTE | 2016-05-15 10:44 | PROG NOTE ---
[address] [address] PROGRESS NOTE PATIENT: DUGLAS MARVIN : 1935 MR#: [id number] ADMIT: 05/10/2016 JOB ID: [id number] DATE: 05/13/2016 SUBJECTIVE: The patient is seen and examined. Doing okay from her left hip ORIF. Her pain is well controlled. She has been having some difficulty mobilizing with therapy. OBJECTIVE: Blood pressure 149/79, pulse rate 84, respirations 16, temperature 36.7. She is alert and cooperative, in no acute distress. Left hip surgical incision is healing well. There is no redness or erythema. [place] intact. She is able to move her toes. No calf pain or tenderness. ASSESSMENT: Status post left hip dynamic hip screw. PLAN: Anticipate the patient will be discharging to [facility] as she is having a difficult time mobilizing and has to negotiate stairs when she gets home. We will anticipate that she will need in-home care daily when she does discharge home in 1-2 weeks for likely a period of six weeks. I would like her to followup in the clinic in two weeks for recheck and staple removal and in six weeks from surgery with x-rays and followup with myself.
== END 2016-05-14 11:14 | DRG 482 ==
LOC: EDBD 00:11 → EDUNIT# 00:11 → SED 00:11 → OSC 01:55
PROVIDERS: ADMIT Specialist; ATTEND Specialist
PROC: 0QS704Z Reposition Left Upper Femur with Internal Fixation Device, Open Approach (ICD-10-PCS; principal; 2016-05-10 16:00)
DX: S72.142A Displaced intertrochanteric fracture of left femur, initial encounter for closed fracture (principal); I10 Essential (primary) hypertension; W18.39XA Other fall on same level, initial encounter; F41.8 Other specified anxiety disorders; M19.90 Unspecified osteoarthritis, unspecified site; M41.9 Scoliosis, unspecified; Y92.013 Bedroom of single-family (private) house as the place of occurrence of the external cause; Z87.891 Personal history of nicotine dependence; Y93.9 Activity, unspecified

== ENCOUNTER 2016-11-07 09:49 | Emergency (ER) | payer MEDICARE ==
[~2016-11-07 09:49] MED LIST changes: +AMLO2.5T PO; +CALC500T53 PO; +CITA20TA11 PO; +HYDR-4003 PO; -OMEP20TA86 PO; +TRAM-14 PO; +TRAM50TA2 PO
[2016-11-07 10:11] VITALS: BP 118/75; PULSE 80; RESP 18; O2SAT 97
--- NOTE | 2016-11-07 10:17 | ED.REPORT ---
HPI-Dyspnea / Wheezing Date of Service Nov 07, 2016 ED Provider: Carter Ny MD Pt is a 81 year old female with a history of HTN and GERD who presents to the ED complaining of worsening right sided chest pain onset this morning. She c/o non-productive cough onset 1 week ago. She denies fever, lower extremity swelling, nausea, and vomiting. Pt reports that her pain is exacerbated with movement and breathing.The pt denies recent heavy lifting, yard work, or extraneous activity. She denies recent surgery. The pt was discharged from [facility] in April after a hip fracture. She has had no hospitalization since. Nursing Notes Stated Complaint: TROUBLE/PAINFUL BREATHING Chief Complaint: Respiratory Distress Nursing Notes Reviewed: Yes Allergies: Coded Allergies: codeine (Verified Allergy, Severe, NAUSEA, 11/07/16) iodine (Verified Allergy, Severe, 11/07/16) pt says topical only kld 11/06/16 Scheduled Amlodipine (Amlodipine) 2.5 Mg Tablet 2.5 MG PO DAILY Calcium Carbonate (Tums) 500 Mg Tab.chew 500 MG PO DAILY Citalopram (Citalopram) 20 Mg Tablet 20 MG PO DAILY Levofloxacin (Levaquin) 750 Mg Tablet 750 MG PO DAILY Naproxen Sodium (Naproxen Sodium) 220 Mg Capsule 220 MG PO BID Omeprazole (Omeprazole) 20 Mg Capsule.dr 20 MG PO QAM Scheduled PRN Tramadol (Tramadol) 50 Mg Tablet 50 MG PO q6 PRN PRN For Pain General Time Seen by MD: 10:16 Chief Complaint Chest pain Hx Obtained From: Patient Arrived By: Walk-in Sudden in Onset?: No Onset Occurred: 5 - 8 hours ago Symptom Duration: Since onset Location: : Chest right Quality: Painful Radiation: : Does not radiate Severity: Current: Moderate Severity: Maximum: Moderate Recent Healthcare: No recent doctor visit, No recent hospitalization Similar Sx Previous: No Past Medical History Past Medical History Arthritis Cataracts Rachel's Reports: GERD, Hypertension Reports: Depression, Urinary tract infection Past Surgical History Right elbow Bilateral knee Left hip Reports: Cataract surgery, Tonsillectomy Reports: Knee replacement Smoking History Former Smoker, Never Smoker Social History Alcohol Use: "Social" Drug Use: Denies drug use Other Social History: Good social support Ambulatory Status Walker Review of Systems Constitutional: Denies: Fever Respiratory: Reports: Non-productive cough Cardiovascular: Reports: Chest pain Musculoskeletal: Denies: Extremity swelling Complete sys rev & neg: except as marked. GI: Denies: Nausea, Vomiting Physical Exam Initial Vital Signs Vital Signs (First) Date Time Temp Pulse Resp B/P Pulse Ox O2 Delivery O2 Flow Rate FiO2 11/07/16 10:11 36.7 80 18 118/75 97 Room Air Initial VS: Reviewed Head / Eyes: Atraumatic, Normocephalic Abdomen / GI: Soft, Non-tender Extremities: Vascular intact, Neuro intact Skin: Warm, Dry, No cyanosis Neurologic: Alert, Oriented, Nonfocal Psychiatric: Mood/affect normal, Behavior normal General/Constitutional: Awake, Alert Neck: Atraumatic, Full range of motion Respiratory / Chest: Atraumatic, Breath sounds NL, Breath sounds = bilat Right sided chest has reproducible tenderness. Cardiovascular: Heart rate NL, Regular rhythm, Heart sounds NL, No murmurs No lower extremity edema. No palpable cords. Interpretation & Diagnostics CT ANGIO CHEST PULMONARY EMBOLISM: IMPRESSION: 1. No pulmonary embolus. 2. Masslike opacity in the right middle lobe most suspicious for pneumonia, however underlying neoplastic process cannot be completely excluded. Recommend therapy for pneumonia and repeat CT scan in one week. 3. Small to moderate-sized right-sided pleural effusion. 4. Thyroid nodules. Recommend thyroid ultrasound for further evaluation when clinically feasible. 5.Cardiomegaly. 6. Findings and recommendations telephoned to Dr. Carter Ny on 11/07/16 at 1401 hrs. Dictated by: Vesta Hope MD, PhD on 11/07/2016 at 13:52 Lab Results Interpretation Result Diagram: 11/07/16 1100 11/07/16 1100 Test 11/07/16 11:00 11/07/16 15:00 White Blood Count 11.3th/mm3 (3.8-10.1) Red Blood Count 3.63mil/mm3 (3.90-5.20) Hemoglobin 11.0g/dL (12.0-15.6) Hematocrit 33.7% (35.0-46.0) Mean Corpuscular Volume 92.8fL (81-100) Mean Corpuscular Hemoglobin 30.3pg (27.0-35.0) Mean Corpuscular Hemoglobin Concent 32.6% (32.0-37.0) Red Cell Distribution Width 12.1% (12.3-15.4) Platelet Count 387bil/L (150-400) Neutrophils (%) (Auto) 80.1% (40-74) Lymphocytes (%) (Auto) 10.3% (14-46) Monocytes (%) (Auto) 8.5% (4-12) Eosinophils (%) (Auto) 0.4% (0-5) Basophils (%) (Auto) 0.4% (0-3) D-Dimer 1.20mg/L FEU (<0.50) Sodium Level 138mEq/L (134-144) Potassium Level 4.1mEq/L (3.5-5.2) Chloride Level 101mEq/L (97-108) Carbon Dioxide Level 22mmol/L (18-29) Blood Urea Nitrogen 14mg/dL (8-27) Creatinine 0.69mg/dL (0.57-1.00) Estimat Glomerular Filtration Rate 117mL/min (>59) Glucose Level 89mg/dL (60-99) Calcium Level 8.7mg/dL (8.5-10.1) Total Bilirubin 0.3mg/dL (0.0-1.2) Aspartate Amino Transf (AST/SGOT) 12U/L (0-50) Alanine Aminotransferase (ALT/SGPT) 8U/L (0-32) Alkaline Phosphatase 123U/L (25-165) Troponin T 0.010ug/L (0.0-0.011) Pro-B-Type Natriuretic Peptide 209.1pg/mL (0-738) Total Protein 6.3g/dL (6.4-8.4) Albumin 3.3g/dL (3.4-5.0) Hold [place] Top Tube Received (Received) Urine Color Yellow (YELLOW) Urine Appearance Hazy (CLEAR,HAZY) Urine pH 7.0 (5.0-8.0) Urine Specific [place] 1.010 (1.003-1.035) Urine Protein Negativemg/dL (NEG,TRACE) Urine Glucose (UA) Negativemg/dL (NEGATIVE) Urine Ketones Negativemg/dL (NEGATIVE) Urine Occult Blood Negative (NEGATIVE) Urine Nitrite Negative (NEGATIVE) Urine Bilirubin Negative (NEGATIVE) Urine Urobilinogen Normalmg/dL (NORMAL) Urine Leukocyte Esterase Small (NEGATIVE) Urine RBC 0-2/hpf (0-2) Urine WBC 6-10/hpf (0-5) Urine Epithelial Cells Occasional/hpf (NONE-MOD) Urine Crystals None seen (NONE SEEN) Urine Bacteria Few/hpf (NONE-FEW) Urine Hyaline Casts None/lpf (NONE) Urine Granular Casts None seen (NONE SEEN) Urine Waxy Casts None seen (NONE SEEN) Urine Red Blood Cell Casts None seen (NONE SEEN) Urine White Blood Cell Casts None seen (NONE SEEN) Urine Mucus None seen (None Seen) Urine Trichomonas None seen (NONE SEEN) Urine Yeast Few (NONE SEEN) Urinalysis Comment None Urine Culture Reflexed Indicated ECG Interpretation ECG Interpretation: Sinus rhythm with a rate of [address] v1v1 No previous for comparison Time: 10:39 Interpreted by: ED physician X-Ray Chest Interpretation Chest Xray Interpretation: IMPRESSION: No acute disease. Probable superimposition of shadows involving the right costophrenic angle although as clinically warranted, this can be confirmed with dedicated PA and lateral chest radiographs. Dictated by: Bunny Haro M.D. on 11/07/2016 at 9:39 View: Portable, 1 view Interpretation / Wet Read by: Interpret - Radiologist Chest Xray Interpretation: IMPRESSION: Masslike opacity in the right middle lobe. Recommend CT scan of the chest with contrast to differentiate round atelectasis, pneumonia or primary bronchogenic carcinoma. Dictated by: Vesta Hope MD, PhD on 11/07/2016 at 11:31 View: AP & lat Interpretation / Wet Read by: Interpret - Radiologist Re-Eval/Medical Decision Med Decision/Clinical Course 81-year-old female presenting with right lung pneumonia and questionable right lung mass. Cannot rule out postobstructive pneumonia. She is not septic. Her oxygen is stable. Her white blood cell count is 11,000. Radiologist recommended repeat CT scan in 1 week to rule out right lung mass as they could not determine if there was a right lung mass or fit with simply pneumonia. I discussed with the hospitalist who recommended discharge home with oral antibiotics. She will be discharged home with oral antibiotics given stable condition with plans to follow up with primary doctor tomorrow. Return precautions given. Given Rocephin and azithromycin here. We will discharge on Levaquin. Source of Hx: Old records Re-Evaluation/Progress #1: Time of Eval: 14:19 Re-Evaluation/Progress Note: Pt rechecked. Informed pt of results. Pt prefers to go home, but her daughter wanted her to be admitted Informed pt of plan for admission. Pt understands and agrees with plan for admission. The pt states she would like CPR if necessary. All questions addressed. Re-Evaluation/Progress #2: Time of Eval: 15:19 Re-Evaluation/Progress Note: Pt rechecked. Informed pt of Dr. Alexander's recommendation. Pt ag Consultation : Referral / Consult Name: Modesto Amaya Consulted With: Hospitalist Call Returned at: 15:17 Jail Manager: Agrees with eval, Agrees with plan Note: Discussed pt's case. Recommends discharge with follow up with PCP. Counseled Regarding: Diagnosis, Lab results, Need for follow-up, When/why to return to ED Discharge & Departure Impression: Primary Impression: Pneumonia Pneumonia type: due to unspecified organism Laterality: unspecified laterality Lung location: unspecified part of lung Qualified Code: J18.9 - Pneumonia, unspecified organism Additional Impression: Mass of right lung Disposition: Home Discharge Condition All VS Reviewed: Yes Condition: Stable Patient Instructions: Pneumonia (ED) Additional Instructions: Thank you for trusting us with your care today. I consulted Dr. Alexander, our hospitalist, and he recommends discharge on medications and follow up. Call your primary care provider today for a follow up appointment tomorrow. You need a repeat CT scan in 1 week in order to rule out a lung mass. Your primary care provider can order this for you. Return to the Emergency Department for any new or concerning symptoms such as shortness of breath, vomiting, chest pain, or fevers. Referrals: Froy River MD (PCP) Alejandraibsaroj Attestation Portions of this note were transcribed by Elana Brody. I, Dr. Ny personally performed the history, physical exam and medical decision-making; I reviewed and confirmed the accuracy of the information in the transcribed note. Signed by: Loy Moran, 11/07/16. copies to: Froy River MD, Ben M MD Nov 07, 2016 10:16 Elana Pa Nov 07, 2016 11:00
--- NOTE | 2016-11-07 10:44 | DRSVH ---
PROCEDURE: X-RAY CHEST ONE VIEW, PORTABLE ([id number]) INDICATIONS: PAIN TECHNIQUE: One view of the chest was acquired. COMPARISON: [facility], CR, XR CHEST 1VW (PORTABLE), 05/10/2016, 0:45. FINDINGS: Surgical changes and devices: None. Lungs and pleura: No pleural effusions or pneumothorax. Lungs are clear. Focal opacity projects in the right costophrenic angle, probably superimposed soft tissue although technically nonspecific Mediastinum: Mediastinal contours appear normal. Heart size is normal. Bones and chest wall: No suspicious bony lesions. Overlying soft tissues appear unremarkable. Late ral curvature of the spine and diffuse discogenic changes. IMPRESSION: No acute disease. Probable superimposition of shadows involving the right costophrenic an gle although as clinically warranted, this can be confirmed with dedicated PA and lateral chest radio graphs. Dictated by: Bunny Haro M.D. on 11/07/2016 at 9:39 Approved by: Bunny Haro M.D. on 11/07/2016 at 9:42
[2016-11-07 11:00] VITALS: BP 129/66; PULSE 71; RESP 18; O2SAT 96
[2016-11-07] MEDS ORDERED: Ketorolac 15 mg/mL Inj IM ONE (11:05)
[2016-11-07 11:20] LABS: BASOPHILS % (AUTO) 0.4 % (0-3); EOSINOPHILS % (AUTO) 0.4 % (0-5); MONOCYTES % (AUTO) 8.5 % (4-12); Mean Corpuscular Hemoglobin 30.3 pg (27.0-35.0); Mean Corpuscular Volume 92.8 fL (81-100); NEUTROPHILS % (AUTO) 80.1 % (40-74); Platelet Count 387 bil/L (150-400)
--- NOTE | 2016-11-07 11:35 | DRSVH ---
PROCEDURE: X-RAY CHEST, TWO VIEWS ([id number]) INDICATIONS: chest pain TECHNIQUE: 2 views of the chest were acquired. COMPARISON: [facility], CR, XR CHEST 1VW (PORTABLE), 11/07/2016, 10:19. FINDINGS: Surgical changes and devices: None. Lungs and pleura: Small right-sided pleural effusion. Masslike opacity in the right middle lobe is no seble. Mediastinum: Mediastinal contours are normal. Heart size is normal. Bones and chest wall: No suspicious bony abnormalities. Soft tissues appear unremarkable. Spine deg enerative disc disease and facet arthropathy. S-shaped scoliosis of the thoracolumbar spine is noted. IMPRESSION: Masslike opacity in the right middle lobe. Recommend CT scan of the chest with contrast t o differentiate round atelectasis, pneumonia or primary bronchogenic carcinoma. Dictated by: Vesta Hope MD, PhD on 11/07/2016 at 11:31 Approved by: Vesta Hope MD, PhD on 11/07/2016 at 11:34
[2016-11-07 11:49] LABS: TROPONIN T 0.01 ug/L (0.0-0.011)
[2016-11-07 12:00] VITALS: BP 132/76; PULSE 72; RESP 16; O2SAT 95
--- NOTE | 2016-11-07 14:05 | DRSVH ---
PROCEDURE: CT ANGIO CHEST PULMONARY EMBOLISM ([id number]) INDICATIONS: elevated d-dimer right sided chest pain TECHNIQUE: After the administration of intravenous contrast, 2 mm thick sections acquired from the pulmonary api adan to the posterior costophrenic angles. 3-dimensional maximum intensity projection (MIP) coronal a nd sagittal reformats were then acquired through the thorax. For radiation dose reduction, the follo wing was used: automated exposure control, adjustment of mA and/or kV according to patient size. COMPARISON: None. FINDINGS: Image quality: Excellent. Pulmonary arteries: Pulmonary arteries are normal in size, and demonstrate no intraluminal filling d efects to suggest central pulmonary embolism. Lungs and pleura: There is an approximately 3.2 x 3.1 x 4.4 cm masslike opacity in the right middle l obe. There is a small, approximately 2.1 cm diameter focus of slightly decreased density within the r ight middle lobe masslike opacity. Lesion may represent either pneumonia with associated inflammatory phlegmon/early abscess or primary bronchogenic carcinoma the area of necrosis. Small to moderate-siz ed right-sided pleural effusion is noted. No pneumothorax. Central and peripheral airways are patent . Mediastinum: Heart size is mildly enlarged, without pericardial effusion. No mediastinal or hilar a denopathy. Thoracic aorta is normal in caliber and enhancement. Esophagus is normal in caliber, wit hout hiatal hernia. Bones and chest wall: No suspicious bony lesions. Ribs and thoracic spine appear intact throughout. Spine degenerative disc disease and facet arthropathy. Thyroid gland contains a subcentimeter hypoa ttenuating nodules. No axillary or supraclavicular adenopathy. Abdomen: Visualized upper abdominal solid organs appear normal in the early arterial phase of enhanc ement. IMPRESSION: 1. No pulmonary embolus. 2. Masslike opacity in the right middle lobe most suspicious for pneumonia, however underlying neopla stic process cannot be completely excluded. Recommend therapy for pneumonia and repeat CT scan in one week. 3. Small to moderate-sized right-sided pleural effusion. 4. Thyroid nodules. Recommend thyroid ultrasound for further evaluation when clinically feasible. 5. Cardiomegaly. 6. Findings and recommendations telephoned to Dr. Carter Ny on 11/07/16 at 1401 hrs. Dictated by: Vesta Hope MD, PhD on 11/07/2016 at 13:52 Approved by: Vesta Hope MD, PhD on 11/07/2016 at 14:04
[2016-11-07] MEDS ORDERED: Azithromycin Inj 500 MG in Dextrose 5% 250 ML IV ONE (14:30)
[2016-11-07] MEDS ORDERED: cefTRIAXone Inj 2,000 MG in Dextrose 5% Minibag Plus 50 ML IV ONE (14:30)
[2016-11-07 15:18] VITALS: BP 128/59; PULSE 82; RESP 16; O2SAT 96
[2016-11-07] MEDS ORDERED: NAPR220C16 PO (15:18)
[2016-11-07] MEDS ORDERED: CALC500T9 PO (15:18)
[2016-11-07] MEDS ORDERED: OMEP20CA11 PO (15:18)
[2016-11-07 15:30] LABS: APPEARANCE,URINE HAZY (CLEAR,HAZY); COLOR,URINE YELLOW (YELLOW); OCCULT BLOOD,URINE NEGATIVE (NEGATIVE); UROBILINOGEN,URINE NORMAL (NORMAL); YEAST,URINE FEW (NONE SEEN)
[2016-11-07] MEDS ORDERED: LEVO750T9 PO (15:32)
[2016-11-07 17:19] VITALS: BP 124/66; PULSE 77; RESP 17; O2SAT 97
== END 2016-11-07 17:24 | disposition home or self-care (01) ==
LOC: SED 09:49
DX: J18.9 Pneumonia, unspecified organism (principal); R91.8 Other nonspecific abnormal finding of lung field; K21.9 Gastro-esophageal reflux disease without esophagitis; I10 Essential (primary) hypertension; F32.9 Major depressive disorder, single episode, unspecified; Z87.440 Personal history of urinary (tract) infections; Z87.891 Personal history of nicotine dependence; Z88.5 Allergy status to narcotic agent; Z88.8 Allergy status to other drugs, medicaments and biological substances
CPT/HCPCS: 36415; 71010; 71020; 71275; 80053; 81000; 83880; 84484; 85025; 85378; 87040; 87086; 93005; 96365; 96367; 96372; 99285; J0456; J0696; J1885; Q9967